=== PATIENT | male | born 1940 | race Caucasian/White ===

== ENCOUNTER 2018-02-14 11:47 | Emergency (ER) | payer MEDICARE, MEDICAID ==
[~2018-02-14] VITALS: Ht 180.3 cm; Wt 77.3 kg
[~2018-02-14 11:47] MED LIST: ACCUPRIL10 MG PO; BAYER CHEWABLE81 MG PO; GLUCOPHAGE500 MG PO; LIPITOR10 MG PO; LOVAZA1 G PO; NIACIN100 MG; NIASPAN500 MG PO; OMEGA-3100 MG PO; PLAVIX75 MG PO; VITAMIN E200 UNI2 PO
[2018-02-14 11:49] VITALS: Ht 180.3 cm; Wt 77.3 kg
[2018-02-14 12:08] LABS: BASOPHILS 0.2 % (0-2); EOSINOPHILS 3.7 % (0-7); HEMATOCRIT 38.1 % (42.0-54.0); HEMOGLOBIN 13.3 g/dL (13.5-17.5); IMMATURE GRANULOCYTES 0.2 % (0-5); LYMPHOCYTES 31.2 % (15-50); MCH 30.2 pg (26.0-34.0); MCHC 34.9 g/dL (31.0-37.0); MCV 86.4 fL (80.0-100.0); MONOCYTES 11.8 % (2-11); NEUTROPHILS 52.9 % (40-80); PLATELET COUNT 217 10x3/uL (130-400); RBC 4.41 10x6/uL (4.20-6.10); RDW 13.3 % (11.5-14.5); WBC 5.9 10x3/uL (4.8-10.8)
[2018-02-14 12:23] LABS: ALBUMIN 3.2 g/dL (3.4-5.0); ANION GAP 14.9 mmol/L (8-16); BILIRUBIN - TOTAL 0.6 mg/dL (0.2-1.3); CALCIUM 8.7 mg/dL (8.5-10.1); CARBON DIOXIDE 23.5 mmol/L (21.0-32.0); CREATININE - SERUM 1.2 mg/dL (0.6-1.3); POTASSIUM - SERUM 4.4 mmol/L (3.5-5.1); PROTEIN - SERUM 7.2 g/dL (6.4-8.2)
[2018-02-14 12:38] LABS: APPEARANCE HAZY (CLEAR); BILIRUBIN NEGATIVE (NEGATIVE); COLOR YELLOW (YELLOW); GLUCOSE 500 mg/dL (NEGATIVE); KETONE NEGATIVE (NEGATIVE); NITRITE NEGATIVE (NEGATIVE); PROTEIN NEGATIVE (NEGATIVE); SPECIFIC GRAVITY 1.025 (1.005-1.020); UROBILINOGEN NORMAL (NORMAL)
[2018-02-14 16:28] VITALS: BP 147/60
== END 2018-02-14 16:29 | disposition home or self-care (01) ==
LOC: D.ER 11:47
PROVIDERS: Emergency Medicine
DX: R10.84 Generalized abdominal pain (principal); E11.9 Type 2 diabetes mellitus without complications; I10 Essential (primary) hypertension

== ENCOUNTER 2018-09-02 14:28 | Inpatient (IN) | payer MEDICARE, MEDICAID ==
[~2018-09-02] VITALS: Ht 180.3 cm; Wt 79.4 kg
[2018-09-02 14:55] LABS: APPEARANCE CLEAR (CLEAR); BILIRUBIN NEGATIVE (NEGATIVE); COLOR YELLOW (YELLOW); GLUCOSE 250 mg/dL (NEGATIVE); KETONE SMALL mg/dL (NEGATIVE); NITRITE NEGATIVE (NEGATIVE); PROTEIN NEGATIVE (NEGATIVE); SPECIFIC GRAVITY 1.025 (1.005-1.020); UROBILINOGEN NORMAL (NORMAL)
[2018-09-02 15:04] LABS: BASOPHILS 0.1 % (0-2); EOSINOPHILS 0.5 % (0-7); HEMATOCRIT 43.4 % (42.0-54.0); HEMOGLOBIN 15.5 g/dL (13.5-17.5); IMMATURE GRANULOCYTES 0.1 % (0-5); LYMPHOCYTES 17.5 % (15-50); MCH 30.7 pg (26.0-34.0); MCHC 35.7 g/dL (31.0-37.0); MCV 85.9 fL (80.0-100.0); MEAN PLATELET VOLUME 11.2 fL (7.4-10.4); MONOCYTES 7.8 % (2-11); PLATELET COUNT 217 10x3/uL (130-400); RBC 5.05 10x6/uL (4.20-6.10); RDW 12.9 % (11.5-14.5); WBC 8.3 10x3/uL (4.8-10.8)
[2018-09-02 15:08] LABS: ANION GAP 14.3 mmol/L (8-16); BILIRUBIN - TOTAL 0.91 mg/dL (0.2-1.3); CALCIUM 9.2 mg/dL (8.5-10.1); CARBON DIOXIDE 28.6 mmol/L (21.0-32.0); CREATININE - SERUM 1.3 mg/dL (0.6-1.3); POTASSIUM - SERUM 3.9 mmol/L (3.5-5.1); PROTEIN - SERUM 8.6 g/dL (6.4-8.2)
[2018-09-02 15:17] LABS: TROPONIN-I 0.029 ng/mL (0.000-0.060)
[2018-09-02 16:21] LABS: AMYLASE - SERUM 895 U/L (25-115); LIPASE 113 U/L (73-393)
[2018-09-02 18:03] LABS: UDS - AMPHET NEGATIVE QUAL (NEGATIVE); UDS - BARB NEGATIVE QUAL (NEGATIVE); UDS - BENZO NEGATIVE QUAL (NEGATIVE); UDS - COCAINE NEGATIVE QUAL (NEGATIVE); UDS - OPIATE NEGATIVE QUAL (NEGATIVE); UDS - PCP NEGATIVE QUAL (NEGATIVE); UDS - THC NEGATIVE QUAL (NEGATIVE)
--- NOTE | 2018-09-02 19:46 | NUR ---
PT ARRIVED ON UNIT VIA WHEELCHAIR ESCORTED BY ER STAFF. POSITIONED IN BED FOR COMFORT.
--- NOTE | 2018-09-02 19:51 | MORECARE ---
CASE MANAGEMENT DISCHARGE SUMMARY PATIENT: SHAYY FALCON UNIT: [id number] ADM DATE: 09/02/18 AGE: 77 : 42 SEX: M ROOM/BED: D.2205 AUTHOR: RENU,DOC PHYSICIAN: REFERRING PHYSICIAN: DIRK MAYFIELD MD DATE OF SERVICE: 09/02/18 Discharge Plan Patient Name: SHAYY FALCON Facility: [facility]:[place] : 1940 Planned Disposition: Home Anticipated Discharge Date: 09/04/18 Discharge Date: Expected LOS: 2 Initial Reviewer: [email or web address] Initial Review Date: 09/02/2018 Generated: 09/02/18 8:51 pm DCP- Discharge Planning Updated by [email or web address]: Destiny Griffiths on 09/02/18 6:[address] Patient Name: SHAYY FALCON Admission Status: ER Accout number: [id number] Admission Date: 09-02-2018 : 1940 Admission Diagnosis: Attending: DIRK MAYFIELD Current LOS: 1 Anticipated DC Date: 09-04-2018 Planned Disposition: Home Primary Insurance: [employer] ADV Discharge Planning Comments: CM met with patient to complete initial dc planning assessment. CM educated patient on the CM role and verbal consent given by patient to complete assessment. Patient lives at home with his step sister. At discharge patient plans to return home and feels this is a safe discharge. CM discussed availability of home health, rehab services, and medical equipment. He has caregivers 3 x w 2 hours a visit that does his house cleaning and laundry. Patient denied further known discharge needs at this time. CM will continue to follow and will assist as needed with dc plans/needs. Physical Science Technician: Destiny Griffiths RN, [facility] DCPIA - Discharge Planning Initial Assessment Updated by [email or web address]: Destiny Griffiths on 09/02/18 7:49 pm * Is the patient Alert and Oriented? Yes * PCP Dr. Cota * Pharmacy [facility] [address] * Preadmission Environment Home with Family * ADLs Independent * Equipment Cane Rolling Walker * List name and contact numbers for known caregivers / representatives who currently or will assist patient after discharge: Ciara Johnson - - [phone] Francois davis - [phone] * Verbal permission to speak to the caregivers and representatives has been obtained from the patient. Yes * Community resources currently utilized Other * Please name any agencies selected above. [facility] * Additional services required to return to the preadmission environment? No * Can the patient safely return to the preadmission environment? Yes * Has this patient been hospitalized within the prior 30 days at any hospital? No Patient Name: SHAYY FALCON Page [id number] at 1950 All edits/amendments must be made on the electronic document DICTATION DATE: 09/02/181950 CONSULTING NETWORKING ENGINEER: NOAH 09/02/181950 RPT#: [id number] DC DATE: STATUS: ADM IN [facility] [address] [place] [address] END OF REPORT
--- NOTE | 2018-09-02 20:30 | NUR ---
STARTED IV FLUIDS PER ORDER AT 200 ML/HR. PT CHANGED INTO A GOWN AND POSITIONED FOR COMFORT.
[2018-09-02 22:43] VITALS: BP 156/81; BMI 24.4
--- NOTE | 2018-09-02 23:03 | NUR ---
ADMISSION ASSESSMENT AND HISTORY COMPLETE.
[2018-09-03 05:18] LABS: BASOPHILS 0.2 % (0-2); EOSINOPHILS 1.5 % (0-7); HEMATOCRIT 35.2 % (42.0-54.0); IMMATURE GRANULOCYTES 0.2 % (0-5); LYMPHOCYTES 32.6 % (15-50); MCH 29.9 pg (26.0-34.0); MCHC 34.9 g/dL (31.0-37.0); MCV 85.6 fL (80.0-100.0); MEAN PLATELET VOLUME 10.5 fL (7.4-10.4); MONOCYTES 12.1 % (2-11); NEUTROPHILS 53.4 % (40-80); PLATELET COUNT 178 10x3/uL (130-400); RBC 4.11 10x6/uL (4.20-6.10); RDW 12.7 % (11.5-14.5)
[2018-09-03 05:21] LABS: HEMOGLOBIN 12.3 g/dL (13.5-17.5); WBC 6.1 10x3/uL (4.8-10.8)
[2018-09-03 05:48] LABS: ALKALINE PHOSPHATASE 70 U/L (46-116); BILIRUBIN - TOTAL 0.71 mg/dL (0.2-1.3); CALCIUM 7.7 mg/dL (8.5-10.1); CARBON DIOXIDE 24.3 mmol/L (21.0-32.0); CHLORIDE - SERUM 107 mmol/L (98-107); LIPASE 770 U/L (73-393); POTASSIUM - SERUM 3.4 mmol/L (3.5-5.1); SODIUM 141 mmol/L (136-145); UREA NITROGEN 13 mg/dL (7-18); eGFR NON AFRICAN AMERICAN 77 mL/min (90-120)
[2018-09-03 05:49] VITALS: BP 114/53
[2018-09-03 05:51] LABS: ALBUMIN 2.8 g/dL (3.4-5.0); ALT (SGPT) 20 U/L (10-68); AMYLASE - SERUM 689 U/L (25-115); CALC OSMOLALITY 280 mosm/kg (275-300); GLUCOSE 106 mg/dL (74-106); PROTEIN - SERUM 6.1 g/dL (6.4-8.2)
--- NOTE | 2018-09-03 07:50 | NUR ---
PT RESTING IN BED. NO ACUTE DISTRESS. DENIES PAIN AT THIS TIME. IV TO LEFT HAND WITH NS @ 200 ML/HR INFUSING VIA PUMP. SITE WITHOUT REDNESS OR EDEMA. REPORTS TENDERNESS TO ABDOMEN WITH MOVEMENT. DENIES FURTHER NEEDS AT THIS TIME. CL WITHIN REACH. ENCOURAGED TO CALL WITH NEEDS. CONTINUE POC
[2018-09-03 08:31] VITALS: BP 144/83
[2018-09-03 13:22] VITALS: Ht 180.3 cm; Wt 79.4 kg
[2018-09-03 13:25] VITALS: BP 125/58
[2018-09-03 17:06] VITALS: BP 127/58
--- NOTE | 2018-09-03 19:29 | NUR ---
PATIENT RESTING IN BED WITH EYES CLOSED AND NO S/S OF DISTRESS. BED IN LOWEST POSITION AND CALL LIGHT WITHIN REACH. WILL CONTINUE TO MONITOR.
[2018-09-03 20:00] VITALS: BP 170/86
[2018-09-04] VITALS: BP 124/58
[2018-09-04 04:00] VITALS: BP 141/57
[2018-09-04 05:25] LABS: BASOPHILS 0.2 % (0-2); EOSINOPHILS 2.2 % (0-7); HEMATOCRIT 33.8 % (42.0-54.0); HEMOGLOBIN 11.8 g/dL (13.5-17.5); IMMATURE GRANULOCYTES 0.2 % (0-5); LYMPHOCYTES 28.1 % (15-50); MCH 30.1 pg (26.0-34.0); MCHC 34.9 g/dL (31.0-37.0); MCV 86.2 fL (80.0-100.0); MEAN PLATELET VOLUME 11.1 fL (7.4-10.4); MONOCYTES 12.4 % (2-11); NEUTROPHILS 56.9 % (40-80); PLATELET COUNT 166 10x3/uL (130-400); RBC 3.92 10x6/uL (4.20-6.10); RDW 12.8 % (11.5-14.5); WBC 5.6 10x3/uL (4.8-10.8)
--- NOTE | 2018-09-04 05:40 | NUR ---
PAGESaad TRUONG JACK MACHINE OPERATOR FOR DR. FORD IN REGARDS TO PATIENT GLUCOSE RESULTS OF 61 AND NO HYPOGLYCEMIC PROTOCOL.
[2018-09-04 06:13] LABS: ALBUMIN 2.8 g/dL (3.4-5.0); ALKALINE PHOSPHATASE 67 U/L (46-116); BILIRUBIN - TOTAL 0.73 mg/dL (0.2-1.3); CALCIUM 7.8 mg/dL (8.5-10.1); CARBON DIOXIDE 21.8 mmol/L (21.0-32.0); CHLORIDE - SERUM 108 mmol/L (98-107); POTASSIUM - SERUM 3.6 mmol/L (3.5-5.1); PROTEIN - SERUM 5.7 g/dL (6.4-8.2); SODIUM 140 mmol/L (136-145); UREA NITROGEN 12 mg/dL (7-18); eGFR NON AFRICAN AMERICAN 77 mL/min (90-120)
[2018-09-04 06:29] LABS: ALT (SGPT) 26 U/L (10-68); CALC OSMOLALITY 276 mosm/kg (275-300); GLUCOSE 59 mg/dL (74-106)
--- NOTE | 2018-09-04 08:17 | NUR ---
AWAKE AND ALERT. ORIENTED X3. NO C/O AT THIS TIME. LUNGS ARE CLEAR BIALTERALLY, NO COUGH NOTED. SKIN IS INTACT WITHOUT REDNESS. IV TO LEFT HAND IS PATENT WITHOUT REDNESS AT INSERTION SITE. DENIES NEEDS. REFUSED OFFER OF ICE CHIPS.
--- NOTE | 2018-09-04 10:00 | NUR ---
RESTING QUIETLY IN BED. C/O INCREASED AMOUNT OF URINATIONS. EXPLAINED IV FLUID RATE IS THE PROBABLE CAUSE OF SAME.
[2018-09-04 12:10] LABS: LIPASE 123 U/L (73-393)
[2018-09-04 12:11] LABS: AMYLASE - SERUM 565 U/L (25-115)
--- NOTE | 2018-09-04 12:30 | NUR ---
LUNCH TRAY SERVED IN ROOM. PATIENT ATE OVER HALF OF REGULAR TRAY. NO C/O NAUSEA OR PAIN AFTER EATING. WILL CONTINUE TO MONITOR.
[2018-09-04 13:45] VITALS: BP 117/52
--- NOTE | 2018-09-04 15:30 | NUR ---
HAD LARGE AMOUNT OF DIARRHEA. ASSISTED TO SHOWER PER STAFF. LINENS CHANGED. IV TO LEFT FOREARM CAME OUT WITH CATHETER INTACT. RESITED TO LEFT FOREARM AFTER ONE ATTEMPT WITH 20G. TOLERATED WELL.
[2018-09-04 16:55] VITALS: BP 131/60
--- NOTE | 2018-09-04 19:32 | NUR ---
ATE ABOUT 3/4 OF SUPPER. DENIES NEEDS. NO CHANGES NOTED. NO C/O NAUSEA OR PAIN AFTER EATING.
[2018-09-04 20:00] VITALS: BP 156/57
[2018-09-05] VITALS: BP 134/52
--- NOTE | 2018-09-05 03:34 | NUR ---
REC'D. AT [facility]. OF SHIFT IN BATHROOM STATES IF THEY ARE NOT GOING TO DO ANYTHING BUT RUN FLUID IN ME I MAY WELL GO HOME.DENIES PAIN AT PRESENT TIME.WILL CONTINUE TO MONITOR FOR ANY FURTHER CHGES AND FOLLOW CURRENT PLAN OF CARE.
[2018-09-05 04:00] VITALS: BP 160/86
[2018-09-05 06:09] LABS: BASOPHILS 0 % (0-2); EOSINOPHILS 2.2 % (0-7); HEMATOCRIT 32.7 % (42.0-54.0); HEMOGLOBIN 11.6 g/dL (13.5-17.5); IMMATURE GRANULOCYTES 0.2 % (0-5); LYMPHOCYTES 30.3 % (15-50); MCH 30.1 pg (26.0-34.0); MCHC 35.5 g/dL (31.0-37.0); MCV 84.7 fL (80.0-100.0); MEAN PLATELET VOLUME 11.3 fL (7.4-10.4); MONOCYTES 13.1 % (2-11); NEUTROPHILS 54.2 % (40-80); PLATELET COUNT 170 10x3/uL (130-400); RBC 3.86 10x6/uL (4.20-6.10); RDW 12.8 % (11.5-14.5); WBC 5.4 10x3/uL (4.8-10.8)
[2018-09-05 06:18] LABS: ALBUMIN 2.6 g/dL (3.4-5.0); ALKALINE PHOSPHATASE 61 U/L (46-116); ALT (SGPT) 20 U/L (10-68); BILIRUBIN - TOTAL 0.51 mg/dL (0.2-1.3); CALCIUM 7.4 mg/dL (8.5-10.1); CARBON DIOXIDE 25.3 mmol/L (21.0-32.0); CHLORIDE - SERUM 108 mmol/L (98-107); LIPASE 135 U/L (73-393); PROTEIN - SERUM 5.5 g/dL (6.4-8.2); SODIUM 142 mmol/L (136-145); UREA NITROGEN 10 mg/dL (7-18); eGFR NON AFRICAN AMERICAN 77 mL/min (90-120)
[2018-09-05 06:38] LABS: CALC OSMOLALITY 279 mosm/kg (275-300)
[2018-09-05 06:40] LABS: AMYLASE - SERUM 577 U/L (25-115); GLUCOSE 60 mg/dL (74-106); POTASSIUM - SERUM 2.9 mmol/L (3.5-5.1)
--- NOTE | 2018-09-05 06:47 | NUR ---
I have reviewed this patient and I concur with the Shift Assessment completed by the Licensed Practical Nurse today this shift.
--- NOTE | 2018-09-05 07:54 | NUR ---
AWAKE AND ALERT. ORIENTED X3. C/O SLIGHT BELLY PAIN THIS AM BUT NO NAUSEA. WILL MONITOR. LUNGS ARE CLEAR BILATERALLY, NO COUGH NOTED. SKIN IS INTACT WITHOUT REDNESS. IV TO LEFT FOREARM IS PATENT WITHOUT REDNESS AT INSERTION SITE. DENIES NEEDS.
--- NOTE | 2018-09-05 08:30 | NUR ---
IV TO LEFT FOREARM REDDENED AND WARM. IV D/C WITH CATHETER INTACT. PATIENT REFUSED TO RESITE IV. "I'M GOING HOME IN A WHILE". WILL GIVE PO POTASSIUM TO COMPLETE DOSE.
[2018-09-05 09:00] VITALS: BP 103/70
--- NOTE | 2018-09-05 12:00 | NUR ---
FSBS 163. GIVEN 2 UNITS HUMALOG SUBQ PER SS. DENIES NEEDS.
--- NOTE | 2018-09-05 12:21 | MORECARE ---
CASE MANAGEMENT DISCHARGE SUMMARY PATIENT: SHAYY FALCON UNIT: [id number] ADM DATE: 09/02/18 AGE: 77 : 42 SEX: M ROOM/BED: D.2205 AUTHOR: ABDIAS SEARS PHYSICIAN: REFERRING PHYSICIAN: DIRK MAYFIELD MD DATE OF SERVICE: 09/05/18 Discharge Plan Patient Name: SHAYY FALCON Facility: [facility]:[place] : 1940 Planned Disposition: Home Anticipated Discharge Date: 09/04/18 Discharge Date: Expected LOS: 2 Initial Reviewer: [email or web address] Initial Review Date: 09/02/2018 Generated: 09/05/18 1:21 pm Comments DCP- Discharge Planning Updated by [email or web address]: Alexia Mcmullen on 09/05/18 11:[address] Patient will be discharging home today, denies any needs. IMM served and explained. CM to follow as needed DCP- Discharge Planning Updated by [email or web address]: Destiny Griffiths on 09/02/18 6:[address] Patient Name: SHAYY FALCON Admission Status: ER Accout number: [id number] Admission Date: 09-02-2018 : 1940 Admission Diagnosis: Attending: DIRK MAYFIELD Current LOS: 1 Anticipated DC Date: 09-04-2018 Planned Disposition: Home Primary Insurance[facility] Discharge Planning Comments: CM met with patient to complete initial dc planning assessment. CM educated patient on the CM role and verbal consent given by patient to complete assessment. Patient lives at home with his step sister. At discharge patient plans to return home and feels this is a safe discharge. CM discussed availability of home health, rehab services, and medical equipment. He has caregivers 3 x w 2 hours a visit that does his house cleaning and laundry. Patient denied further known discharge needs at this time. CM will continue to follow and will assist as needed with dc plans/needs. Chemist Internship: Destiny Griffiths RN, [facility] DCPIA - Discharge Planning Initial Assessment Updated by [email or web address]: Destiny Griffiths on 09/02/18 7:49 pm * Is the patient Alert and Oriented? Yes * PCP Dr. Cota * Pharmacy [facility] [address] by [address] * Preadmission Environment Home with Family * ADLs Independent * Equipment Cane Rolling Walker * List name and contact numbers for known caregivers / representatives who currently or will assist patient after discharge: Ciara Johnson - sister - [phone] Francois Johnson - brother - [phone] * Verbal permission to speak to the caregivers and representatives has been obtained from the patient. Yes * Community resources currently utilized Other * Please name any agencies selected above. [facility] * Additional services required to return to the preadmission environment? No * Can the patient safely return to the preadmission environment? Yes * Has this patient been hospitalized within the prior 30 days at any hospital? No Coverage Notice Reviewer: [id number] Christelle Mcmullen Notice Issued Date-Time: 09/05/2018 12:13 Notice Type: IM Discharge Notice Notice Delivered To: Patient Relationship to Patient: Military Police Officer Name: Delivery Method: HAND - Hand Delivered Ayaka Days: Prior Verbal Notification: Recipient Understood Notice: Yes Recipient Signature: Yes Med Rec Note Co-signed by Attending: Coverage Notice Comment: Last DP export: 09/02/18 6:51 p Patient Name: SHAYY FALCON Page 22953 at 1221 All edits/amendments must be made on the electronic document DICTATION DATE: 09/05/181219 DIRECTOR PLANS: NOAH 09/05/181219 RPT#: [id number] DC DATE: STATUS: ADM IN [facility] [address] [place] [address] END OF REPORT
[2018-09-05 13:14] VITALS: BP 145/80
--- NOTE | 2018-09-05 14:02 | NUR ---
NUTRITION F/U PT TOLERATING REG DIET AT BREAKFAST. NOTE POSSIBLE DC. WILL CONTINUE TO PROVIDE DIET, MONITOR PT PROGRESS. RD FOLLOWING
--- NOTE | 2018-09-05 14:48 | NUR ---
POTASSIUM UP TO 3.4. DISCHARGED TO HOME AT THIS TIME AMBULATORY. DISCHARGE INSTRUCTIONS GIVEN BOTH VERB ALLY AND WRITTEN. ALL QUESTIONS ANSWERED. NO NEW PRESCRIPTIONS NEEDED. PATIENT VERBALIZED UNDERSTANDING OF SAME. WAITING ON RIDE AT THIS TIME.
--- NOTE | 2018-09-05 15:20 | NUR ---
DISCHARGED TO HOME AMBULATORY. ALL BELONGINGS WITH PATIENT.
--- NOTE | 2018-09-06 16:59 | MORECARE ---
CASE MANAGEMENT DISCHARGE SUMMARY PATIENT: SHAYY FALCON UNIT: [id number] ADM DATE: 09/02/18 AGE: 77 : 42 SEX: M ROOM/BED: D.2205 AUTHOR: ABDIAS SEARS PHYSICIAN: REFERRING PHYSICIAN: DIRK MAYFIELD MD DATE OF SERVICE: 09/06/18 Discharge Plan Patient Name: SHAYY FALCON Facility: [facility]:[place] : 1940 Planned Disposition: Home Anticipated Discharge Date: 09/04/18 Discharge Date: 09/05/2018 Expected LOS: 2 Initial Reviewer: [email or web address] Initial Review Date: 09/02/2018 Generated: 09/06/18 5:59 pm Comments DCP- Discharge Planning Updated by [email or web address]: Alexia Mcmullen on 09/05/18 11:[address] Patient will be discharging home today, denies any needs. IMM served and explained. CM to follow as needed DCP- Discharge Planning Updated by [email or web address]: Destiny Griffiths on 09/02/18 6:[address] Patient Name: SHAYY FALCON Admission Status: ER Accout number: [id number] Admission Date: 09-02-2018 : 1940 Admission Diagnosis: Attending: DIRK MAYFIELD Current LOS: 1 Anticipated DC Date: 09-04-2018 Planned Disposition: Home Primary Insurance: [facility] MEDICARE ADV Discharge Planning Comments: CM met with patient to complete initial dc planning assessment. CM educated patient on the CM role and verbal consent given by patient to complete assessment. Patient lives at home with his step sister. At discharge patient plans to return home and feels this is a safe discharge. CM discussed availability of home health, rehab services, and medical equipment. He has caregivers 3 x w 2 hours a visit that does his house cleaning and laundry. Patient denied further known discharge needs at this time. CM will continue to follow and will assist as needed with dc plans/needs. Transfer Engineer: Destiny Griffiths RN, [facility] DCPIA - Discharge Planning Initial Assessment Updated by [email or web address]: Destiny Griffiths on 09/02/18 7:49 pm * Is the patient Alert and Oriented? Yes * PCP Dr. Cota * Pharmacy [facility] [address] by [address] * Preadmission Environment Home with Family * ADLs Independent * Equipment Cane Rolling Walker * List name and contact numbers for known caregivers / representatives who currently or will assist patient after discharge: Ciara Johnson - sister - [phone] Francois Johnson - brother - [phone] * Verbal permission to speak to the caregivers and representatives has been obtained from the patient. Yes * Community resources currently utilized Other * Please name any agencies selected above. [facility] * Additional services required to return to the preadmission environment? No * Can the patient safely return to the preadmission environment? Yes * Has this patient been hospitalized within the prior 30 days at any hospital? No Coverage Notice Reviewer: [id number] Christelle Mcmullen Notice Issued Date-Time: 09/05/2018 12:13 Notice Type: IM Discharge Notice Notice Delivered To: Patient Relationship to Patient: Tie Worker Name: Delivery Method: HAND - Hand Delivered Ayaka Days: Prior Verbal Notification: Recipient Understood Notice: Yes Recipient Signature: Yes Med Rec Note Co-signed by Attending: Coverage Notice Comment: Last DP export: 09/05/18 11:21 am Patient Name: SHAYY FALCON Page 88959 at 1659 All edits/amendments must be made on the electronic document DICTATION DATE: 09/06/181658 ASSISTANT EDITOR: NOAH 09/06/181658 RPT#: [id number] DC DATE:09/05/18 STATUS: DIS IN [facility] [address] [place] [address] END OF REPORT
== END 2018-09-05 15:20 | disposition home or self-care (01) | DRG 440 ==
LOC: D.ER 14:28 → D.MS 18:44
PROVIDERS: Family Medicine; ADMIT Internal Medicine Nephrology; ATTEND Internal Medicine Nephrology
DX: K85.90 Acute pancreatitis without necrosis or infection, unspecified (principal); R11.2 Nausea with vomiting, unspecified; E86.0 Dehydration; E11.65 Type 2 diabetes mellitus with hyperglycemia; I10 Essential (primary) hypertension; I20.9 Angina pectoris, unspecified

== ENCOUNTER → 2018-09-20 11:28 | Outpatient (CLI) | payer MEDICARE, MEDICAID ==
[2018-09-03 13:22] VITALS: BMI 24.4
[2018-09-20 12:45] LABS: LIPASE 139 U/L (73-393)
[2018-09-20 13:01] LABS: AMYLASE - SERUM 835 U/L (25-115)
[2018-09-22 12:09] LABS: IGG SUBCLASS 1 538 mg/dL (248-810); IGG SUBCLASS 2 325 mg/dL (130-555); IGG SUBCLASS 3 35 mg/dL (15-102); IGG SUBCLASS 4 188 mg/dL (2-96)
== END | disposition home or self-care (01) ==
LOC: D.LAB 11:28
PROVIDERS: ATTEND Internal Medicine Gastroenterology
DX: R74.8 Abnormal levels of other serum enzymes (principal); R10.9 Unspecified abdominal pain; K59.09 Other constipation

== ENCOUNTER 2018-09-28 12:30 | Inpatient (IN) | payer MEDICARE, MEDICAID ==
[~2018-09-28] VITALS: Ht 180.3 cm; Wt 76.8 kg
[2018-09-28 13:29] LABS: BASOPHILS 0 % (0-2); EOSINOPHILS 0.2 % (0-7); HEMATOCRIT 43.6 % (42.0-54.0); HEMOGLOBIN 15.7 g/dL (13.5-17.5); IMMATURE GRANULOCYTES 0.2 % (0-5); LYMPHOCYTES 12.9 % (15-50); MCH 30.7 pg (26.0-34.0); MCV 85.3 fL (80.0-100.0); MEAN PLATELET VOLUME 12.1 fL (7.4-10.4); MONOCYTES 11.8 % (2-11); NEUTROPHILS 74.9 % (40-80); RBC 5.11 10x6/uL (4.20-6.10); RDW 12.4 % (11.5-14.5); WBC 11.1 10x3/uL (4.8-10.8)
[2018-09-28 13:34] LABS: PLATELET COUNT 271 10x3/uL (130-400)
[2018-09-28 14:00] VITALS: BP 186/99
[2018-09-28 14:24] LABS: APPEARANCE CLEAR (CLEAR); COLOR YELLOW (YELLOW); SPECIFIC GRAVITY 1.025 (1.005-1.020)
[2018-09-28 14:25] LABS: ALBUMIN 3.4 g/dL (3.4-5.0); ANION GAP 13.6 mmol/L (8-16); BILIRUBIN - TOTAL 1.18 mg/dL (0.2-1.3); CALCIUM 8.8 mg/dL (8.5-10.1); CARBON DIOXIDE 27.4 mmol/L (21.0-32.0); CREATININE - SERUM 1.3 mg/dL (0.6-1.3); PROTEIN - SERUM 7.3 g/dL (6.4-8.2)
[2018-09-28 14:25] LABS: BACTERIA FEW /hpf (NONE SEEN); BILIRUBIN NEGATIVE (NEGATIVE); EPITHELIAL CELLS 0-5 /hpf (0-5); GLUCOSE 1000 mg/dL (NEGATIVE); KETONE NEGATIVE (NEGATIVE); NITRITE NEGATIVE (NEGATIVE); PROTEIN 1+ mg/dL (NEGATIVE); RED CELLS - URINE NONE SEEN /hpf (0-5); UROBILINOGEN NORMAL (NORMAL); WHITE CELLS - URINE NSEEN /hpf (0-5)
[2018-09-28 14:27] LABS: TROPONIN-I 0.042 ng/mL (0.000-0.060)
[2018-09-28 15:00] VITALS: BP 189/96
[2018-09-28 16:00] VITALS: BP 165/97
--- NOTE | 2018-09-28 16:54 | MORECARE ---
CASE MANAGEMENT DISCHARGE SUMMARY PATIENT: SHAYY FALCON UNIT: [id number] ADM DATE: 09/28/18 AGE: 77 : 42 SEX: M ROOM/BED: D.1205 AUTHOR: ABDIAS SEARS PHYSICIAN: REFERRING PHYSICIAN: DIRK MAYFIELD MD DATE OF SERVICE: 09/28/18 Discharge Plan Patient Name: SHAYY FALCON Facility: [facility]:[place] : 1940 Planned Disposition: Home Anticipated Discharge Date: 09/30/18 Discharge Date: Expected LOS: 2 Initial Reviewer: [email or web address] Initial Review Date: 09/28/2018 Generated: 09/28/18 5:54 pm DCPIA - Discharge Planning Initial Assessment Updated by [email or web address]: Destiny Griffiths on 09/28/18 4:54 pm * Is the patient Alert and Oriented? Yes * How many steps to enter\exit or inside your home? one * PCP Dr. Cota * Pharmacy [facility] by [address] * Preadmission Environment Home with Family * ADLs Partial Dependent * Partial ADLs (Assistance needed) Medication Management * Equipment Cane Rolling Walker Wheelchair * Other Equipment blood pressure cuff * List name and contact numbers for known caregivers / representatives who currently or will assist patient after discharge: Ciara Johnson - poa- [phone] Francois Bourgeois nephserafin - [phone] Bill -friend (transportation at [place]) [phone] * Verbal permission to speak to the caregivers and representatives has been obtained from the patient. Yes * Community resources currently utilized Meals on Wheels Private Duty Care * Please name any agencies selected above. [facility] * Additional services required to return to the preadmission environment? No * Can the patient safely return to the preadmission environment? Yes * Has this patient been hospitalized within the prior 30 days at any hospital? Yes Patient Name: SHAYY FALCON Page 72926 at 4521 All edits/amendments must be made on the electronic document DICTATION DATE: 09/28/181652 AIR TRAFFIC CONTROL SUPERVISOR: NOAH 09/28/181652 RPT#: [id number] DC DATE: STATUS: ADM IN [facility] [address] [place] [address] END OF REPORT
[2018-09-28 17:00] VITALS: BP 166/77
--- NOTE | 2018-09-28 19:47 | NUR ---
LEVAQUIN INFUSION COMPLETE AT THIS TIME.
[2018-09-28] MEDS ORDERED: CATAPRES0.1 MG PO (19:57)
[2018-09-28] MEDS ORDERED: PREDNISONE10 MG PO (19:58)
[2018-09-28] MEDS ORDERED: MIRALAX17 GM PO (20:00)
[2018-09-28] MEDS ORDERED: ULTRAM50 MG PO (20:00)
[2018-09-28 20:04] VITALS: BP 159/88
[2018-09-28 22:54] VITALS: BP 159/88; BMI 23.6
[2018-09-29 00:58] VITALS: BP 180/103
[2018-09-29 04:43] VITALS: BP 186/109
[2018-09-29 05:29] LABS: BASOPHILS 0 % (0-2); EOSINOPHILS 0.2 % (0-7); IMMATURE GRANULOCYTES 0.2 % (0-5); MCH 30.1 pg (26.0-34.0); MCHC 35.9 g/dL (31.0-37.0); MCV 83.9 fL (80.0-100.0); MEAN PLATELET VOLUME 11.3 fL (7.4-10.4); MONOCYTES 14.2 % (2-11); NEUTROPHILS 67.4 % (40-80); PLATELET COUNT 233 10x3/uL (130-400); RBC 4.65 10x6/uL (4.20-6.10); RDW 12.4 % (11.5-14.5); WBC 9.9 10x3/uL (4.8-10.8)
[2018-09-29 06:01] LABS: ALBUMIN 2.9 g/dL (3.4-5.0); ANION GAP 14.6 mmol/L (8-16); BILIRUBIN - TOTAL 0.89 mg/dL (0.2-1.3); CALCIUM 8.3 mg/dL (8.5-10.1); CARBON DIOXIDE 24.1 mmol/L (21.0-32.0); CREATININE - SERUM 1.1 mg/dL (0.6-1.3); MAGNESIUM - SERUM 2.2 mg/dL (1.8-2.4); POTASSIUM - SERUM 3.7 mmol/L (3.5-5.1); PROTEIN - SERUM 6.5 g/dL (6.4-8.2)
[2018-09-29] MEDS ORDERED: CREON (PANCRELI1 CAP PO (06:32)
--- NOTE | 2018-09-29 07:54 | NUR ---
IVBP FLAGYL HUNG AT THIS TIME. PT A/O X4, RESP EVEN AND NONLABORED ON RA. MONITOR SHOWING SR 75. PT DENIES ANY NEEDS AT THSI TIME. CALL LIGHT IN REACH, NAD NOTED, WILL CONTINUE PLAN OF CARE.
[2018-09-29 08:14] VITALS: BP 161/84
[2018-09-29 09:32] LABS: APTT 34.9 SECONDS (22.8-39.4); INR 1.23 (0.85-1.17)
--- NOTE | 2018-09-29 10:04 | NUR ---
AM MEDS GIVEN AT THIS TIME. ALSO GAVE 4MG OF MORPHINE FOR PAIN LEVEL OF 5/10. PT IN BED, DENIES ANY NEEDS AT THIS TIME. CALL LIGHT IN REACH, NAD NOTED, WILL CONTINUE TO MONITOR.
--- NOTE | 2018-09-29 11:49 | NUR ---
BLOOD SUGAR OF 163, 4UNITS OF HUMULIN GIVEN PER S/S. PT DENIES ANY NEEDS AT THIS TIME. CALL LIGHT IN REACH, NAD NOTED, WILL CONTINUE TO MONITOR.
[2018-09-29 13:17] VITALS: BP 136/81
[2018-09-29 13:43] VITALS: Ht 180.3 cm; Wt 76.8 kg
--- NOTE | 2018-09-29 14:54 | NUR ---
URINE SAMPLE COLLECTED AND TAKEN TO LAB.
--- NOTE | 2018-09-29 16:00 | NUR ---
PT'S SISTER (SUZANNA) CALLED AND ADDED FLOMAX TO PT'S ALLERGY LIST. ALLERGY NOTED.
[2018-09-29 16:09] VITALS: BP 114/60
--- NOTE | 2018-09-29 16:54 | NUR ---
BLOOD SUGAR OF 77, NO COVERAGE PER S/S. ALSO HELD METFORMIN AT THIS TIME. ENCOURAGE PT TO EAT HIS DINNER. IVPB LEVAQUIN HUNG AT THIS TIME. PT DENIES ANY NEEDS AT THIS TIME. CALL LIGHT IN REACH, NAD NOTED.
--- NOTE | 2018-09-29 17:25 | NUR ---
CALLED ORA AND INFORMED HER THAT I NEED CLINIMIX AND ZOFRAN DRIP FOR PT.
--- NOTE | 2018-09-29 18:32 | NUR ---
NOTIFIED BY HOUSESUPERVISOR THAT CLINIMEX WILL NOT BE AVAILABLE UNTIL TOMORROW, BECAUSE PHARMACY HAS TO MIX IT.
--- NOTE | 2018-09-29 19:09 | NUR ---
PATIENT RESTING IN BED AND DENIES NEEDS AT THIS TIME. BED IN LOWEST POSITION AND CALL LIGHT WITHIN REACH. ENCOURAGED THE PATIENT TO CALL IF HE HAS NEEDS. WILL CONTINUE TO MONITOR.
[2018-09-29 20:08] VITALS: BP 108/56
[2018-09-30 00:20] VITALS: BP 107/56
[2018-09-30 04:58] VITALS: BP 124/76
[2018-09-30 07:36] LABS: BASOPHILS 0 % (0-2); EOSINOPHILS 1.8 % (0-7); HEMATOCRIT 34.5 % (42.0-54.0); HEMOGLOBIN 12.1 g/dL (13.5-17.5); IMMATURE GRANULOCYTES 0.2 % (0-5); LYMPHOCYTES 25.4 % (15-50); MCH 29.9 pg (26.0-34.0); MCHC 35.1 g/dL (31.0-37.0); MCV 85.2 fL (80.0-100.0); MEAN PLATELET VOLUME 11.2 fL (7.4-10.4); MONOCYTES 12.3 % (2-11); NEUTROPHILS 60.3 % (40-80); PLATELET COUNT 190 10x3/uL (130-400); RBC 4.05 10x6/uL (4.20-6.10); RDW 12.4 % (11.5-14.5)
[2018-09-30 07:37] VITALS: BP 127/69
[2018-09-30 07:39] LABS: WBC 6.2 10x3/uL (4.8-10.8)
[2018-09-30 07:52] LABS: INR 1.27 (0.85-1.17); PROTIME 15.3 SECONDS (11.6-15.0)
[2018-09-30 08:03] LABS: ALBUMIN 2.5 g/dL (3.4-5.0); ANION GAP 11.4 mmol/L (8-16); BILIRUBIN - TOTAL 0.86 mg/dL (0.2-1.3); CALCIUM 7.6 mg/dL (8.5-10.1); CARBON DIOXIDE 26.2 mmol/L (21.0-32.0); CHOL - HDL RATIO 4.8 ratio (2.3-4.9); CREATININE - SERUM 1.1 mg/dL (0.6-1.3); LDL-HDL RATIO 3.2 ratio (1.5-3.5); POTASSIUM - SERUM 3.6 mmol/L (3.5-5.1); PROTEIN - SERUM 5.4 g/dL (6.4-8.2)
--- NOTE | 2018-09-30 08:30 | NUR ---
BLOOD SUGAR OF 87, NO COVERAGE PER S/S. IVPB FLAGYL HUNG AT THIS TIME. CLINIMIX STARTED AT 30CC/HR. PT A/O X4, RESP EVEN AND NONLABORED ON RA. LT FA IV PATENT AND WORKING WELL. PT STATES THAT HE FEELS A LOT BETTER, NPO AT THIS TIME FOR MRI OF HIS ABD. PT DENIES ANY NEEDS AT THIS TIME. CALL LIGHT IN REACH, BEDSIDE RAILS X2, NAD NOTED, WILL CONTINUE TO MONITOR.
--- NOTE | 2018-09-30 08:52 | NUR ---
SPOKE WITH JESSICA FROM MRI AND NOTIFIED HER THAT MRI OF ABD NEEDS TO BE DONE TO DAY PER DR. CARTER.
--- NOTE | 2018-09-30 10:15 | NUR ---
PT TRANSFERED TO MRI AT THIS TIME. VIA WHEELCHAIR, NAD NOTED.
[2018-09-30 11:22] VITALS: BP 148/75
--- NOTE | 2018-09-30 11:49 | NUR ---
PT BACK TO ROOM FROM MRI. AM MEDS GIVEN LATE DUE TO PT BEING NPO FOR MRI. BLOOD SUGAR OF 118, NO COVERAGE NEEDED PER S/S. PT ASKING FOR REAL FOOD, INFOMRED HIM THAT HE IS ON A CLEAR LIQUID DIET FOR NOW. PT VERBALIZED UNDERSTANDING. PT DENIES ANY NEEDS AT THIS TIME. CALL LIGHT IN REACH, NAD NOTED, WILL CONTINUE TO MONITOR.
--- NOTE | 2018-09-30 13:26 | NUR ---
PER DR MAYFIELD, CHANGE DIET TO LOW FAT. ORDER NOTED.
[2018-09-30 15:28] VITALS: BP 109/53
--- NOTE | 2018-09-30 15:41 | NUR ---
GAVE 4MG OF MORHINE FOR PAIN LEVEL OF 6/10. IVPB LEVAQUIN HUNG AT THIS TIME. PT DENIES ANY OTHER NEEDS AT THIS TIME. CALL LIGHT IN REACH, NAD NOTED, WILL CONTINUE PLAN OF CARE.
--- NOTE | 2018-09-30 16:05 | NUR ---
RT FA IV INFILTRATD, D/C IV WITH CATHETER TIP INTACT. NEW 20G IV STARTED TO LT FA IV X2 STICKS.
--- NOTE | 2018-09-30 19:26 | NUR ---
PATIENT RESTING IN BED AND DENIES NEEDS AT THIS TIME. NO S/S OF DISTRESS. BED IN LOWEST POSITION AND CALL LIGHT WITHIN REACH. ENCOURAGED THE PATIENT TO CALL IF HE HAS NEEDS. WILL CONTINUE TO MONITOR.
[2018-09-30 19:27] VITALS: BP 105/68
--- NOTE | 2018-09-30 21:48 | NUR ---
PATIENT REQUESTED DOCTOR BE CALLED FOR SOMETHING TO HELP HIM SLEEP
--- NOTE | 2018-09-30 21:50 | NUR ---
SPOKE WITH DR. MAYFIELD WHO ORDERED 100MG TRAZADONE QHS PRN FOR SLEEP
--- NOTE | 2018-09-30 21:53 | NUR ---
NOTIFIED DATABASE DEVELOPMENT PROJECT MANAGER THAT I HAVE A NEW ORDER FOR TRAZADONE THAT NEEDS TO BE PULLED
[2018-10-01] VITALS (7 sets, daily range): BP systolic 128–198; BP diastolic 61–80
[2018-10-01 07:16] LABS: BASOPHILS 0 % (0-2); EOSINOPHILS 1.8 % (0-7); HEMATOCRIT 33.3 % (42.0-54.0); IMMATURE GRANULOCYTES 0.1 % (0-5); MCV 83.3 fL (80.0-100.0); MEAN PLATELET VOLUME 11.5 fL (7.4-10.4); MONOCYTES 11.5 % (2-11); NEUTROPHILS 59.6 % (40-80); PLATELET COUNT 189 10x3/uL (130-400); RDW 12.4 % (11.5-14.5); WBC 7.2 10x3/uL (4.8-10.8)
[2018-10-01 07:43] LABS: CALC OSMOLALITY 274 mosm/kg (275-300); CALCIUM 7.5 mg/dL (8.5-10.1); CARBON DIOXIDE 24.2 mmol/L (21.0-32.0); CHLORIDE - SERUM 105 mmol/L (98-107); GLUCOSE 112 mg/dL (74-106); LIPASE 116 U/L (73-393); POTASSIUM - SERUM 3.2 mmol/L (3.5-5.1); SODIUM 136 mmol/L (136-145); UREA NITROGEN 18 mg/dL (7-18); eGFR NON AFRICAN AMERICAN 77 mL/min (90-120)
[2018-10-01 07:45] LABS: AMYLASE - SERUM 447 U/L (25-115)
--- NOTE | 2018-10-01 08:46 | NUR ---
AM MEDS GIVEN AT THIS TIME. ALSO GAVE 40MEQ OF K FOR LOW K OF 3.2. PT DENIES ANY NEEDS AT THIS TIME. CALL LIGHT IN REACH, NAD NOTED, WILL CONTINUE TO MONITOR.
--- NOTE | 2018-10-01 10:23 | NUR ---
HELPED PT TO BATHROOM AND BACK TO BED. 72HR FECAL FAT COLLECTION STARTED. PLACED COLLECTION CONTAINER ON ICE. PT DENIES ANY OTHER NEEDS AT THIS TIME. CALL LIGHT IN REACH,NAD NOTED, WILL CONTINUE TO MONITOR.
--- NOTE | 2018-10-01 15:54 | NUR ---
HELPED PT TO BATHROOM AND BACK TO BED.
[2018-10-02] VITALS (7 sets, daily range): BP systolic 130–165; BP diastolic 61–78
[2018-10-02 07:04] LABS: BASOPHILS 0.1 % (0-2); EOSINOPHILS 1.2 % (0-7); HEMATOCRIT 33.4 % (42.0-54.0); IMMATURE GRANULOCYTES 0.1 % (0-5); LYMPHOCYTES 28.3 % (15-50); MCH 29.8 pg (26.0-34.0); MCHC 35.9 g/dL (31.0-37.0); MCV 82.9 fL (80.0-100.0); MEAN PLATELET VOLUME 11.2 fL (7.4-10.4); MONOCYTES 13.4 % (2-11); NEUTROPHILS 56.9 % (40-80); PLATELET COUNT 196 10x3/uL (130-400); RBC 4.03 10x6/uL (4.20-6.10); RDW 12.4 % (11.5-14.5); WBC 7.4 10x3/uL (4.8-10.8)
[2018-10-02 07:11] LABS: CALC OSMOLALITY 273 mosm/kg (275-300); CALCIUM 7.7 mg/dL (8.5-10.1); CARBON DIOXIDE 25.4 mmol/L (21.0-32.0); CHLORIDE - SERUM 104 mmol/L (98-107); GLUCOSE 101 mg/dL (74-106); LIPASE 87 U/L (73-393); POTASSIUM - SERUM 3.4 mmol/L (3.5-5.1); SODIUM 137 mmol/L (136-145); eGFR NON AFRICAN AMERICAN 77 mL/min (90-120)
[2018-10-02 07:30] LABS: AMYLASE - SERUM 491 U/L (25-115); UREA NITROGEN 12 mg/dL (7-18)
--- NOTE | 2018-10-02 07:42 | NUR ---
MORNING ROUNDS MADE. PT LAYING IN BED, A/O X 4. PT C/O NOT FEELING WELL AT THIS TIME. PT STATES "I DONT FEEL WELL AND THE DOCTORS WONT LISTEN TO ME". VITALS TAKEN, STABLE AT THIS TIME. RM AIR. IV TO L FA, NS @ 100, PROCAL @ 30, ZOFRAN DRIP @ 7 ML/HR, DRSG C/D/I, PATENT, NO REDNESS OR EDEMA NOTED. BREATHING EVEN AND UNLABORED. NO EDEMA NOTED. FALL PRECAUTIONS IN PLACE. YELLOW GOWN ON, NON SKID SOCKS, BROCK MAT ON BED AND TURNED ON, BED LOWERED AND LOCKED, CL IN REACH, DENIES FURTHER NEEDS AT THIS TIME. WILL CTM.
--- NOTE | 2018-10-02 08:43 | NUR ---
PT TOOK MEDS WITHOUT DIFFICULTY. BS 131, NO COVERAGE NEEDED. DENIES FURTHER CONCERNS AT THIS TIME. BED LOWERED AND LOCKED. CL IN REACH. BROCK MAT ON. WILL CTM.
--- NOTE | 2018-10-02 12:03 | NUR ---
FLAGYL COMPLETE AT 1645PM 09-28-28
--- NOTE | 2018-10-02 12:23 | NUR ---
I have reviewed this patient and I concur with the Shift Assessment completed by the Licensed Practical Nurse today this shift.
--- NOTE | 2018-10-02 13:24 | NUR ---
PT LAYING IN BED RESTING. PT STATES HE CANT EAT SALAD DUE TO HAVING TEETH WITH HIM. DIETITIAN TO ORDER SANDWHICH AND SOFT DIET. NO FUTHER CONCERNS/COMPLAINTS AT THIS TIME. FALL PRECAUTIONS IN PLACE. WILL CTM.
--- NOTE | 2018-10-02 13:25 | NUR ---
Nutrition follow up AHA diet ordered Pt reports he was not able to eat lunch today as he does not have teeth and he ordered a salad Custom ordered lunch for today Changed diet to mechanical soft Noted pt is tolerating meals On procalamine at 30mL/hour RD following
--- NOTE | 2018-10-02 13:57 | MORECARE ---
CASE MANAGEMENT DISCHARGE SUMMARY PATIENT: SHAYY FALCON UNIT: [id number] ADM DATE: 09/28/18 AGE: 77 : 42 SEX: M ROOM/BED: D.1205 AUTHOR: RENUDOC PHYSICIAN: REFERRING PHYSICIAN: DIRK MAYFIELD MD DATE OF SERVICE: 10/02/18 Discharge Plan Patient Name: SHAYY FALCON Facility: [facility]:[place] : 1940 Planned Disposition: Home Anticipated Discharge Date: 09/30/18 Discharge Date: Expected LOS: 2 Initial Reviewer: [email or web address] Initial Review Date: 09/28/2018 Generated: 10/02/18 2:56 pm Comments DCP- Discharge Planning Updated by [email or web address]: Nini Casillas on 10/02/18 12:[address] Patient Name: SHAYY FALCON Encounter No: [id number] : 1940 Primary Insurance: WELLCARE MEDICARE ADV Anticipated DC Date: 09-30-2018 Planned Disposition: Home External Planned Provider: : DCP follow-up note: Patient and family in agreement with discharge plan. No changes to plan. Case management will follow and assist as needed. Nini CasillasPatient Name: SHAYY FALCON Admission Status: ER Accout number: [id number] Admission Date: 09-28-2018 : 1940 Admission Diagnosis: Attending: DIRK MAYFIELD Current LOS: 4 Anticipated DC Date: 09-30-2018 Planned Disposition: Home Primary Insurance: WELLCARE MEDICARE ADV Discharge Planning Comments: Family friends request someone talk to pt about rehab or possible assisted living, Pt lives with 92 yo old sister. House has no air an she can barely take care of her self. The friends are talking about calling aps to have them check on pts living arrangements and his sister. They stated they eat, take meds and get around ok but they just feel like maybe both of them need a different living situation. They have no POA or family. Boat Camp Operator: Nini Casillas DCPIA - Discharge Planning Initial Assessment Updated by [email or web address]: Destiny Griffiths on 09/28/18 4:54 pm * Is the patient Alert and Oriented? Yes * How many steps to enter\exit or inside your home? one * PCP Dr. Cota * Pharmacy [facility] [address] * Preadmission Environment Home with Family * ADLs Partial Dependent * Partial ADLs (Assistance needed) Medication Management * Equipment Cane Rolling Walker Wheelchair * Other Equipment blood pressure cuff * List name and contact numbers for known caregivers / representatives who currently or will assist patient after discharge: Ciara Johnson - poa- [phone] Francois Bourgeois nephserafin - [phone] Bill -friend (transportation at [place]) [phone] * Verbal permission to speak to the caregivers and representatives has been obtained from the patient. Yes * Community resources currently utilized Me[employer] Wheels Private Duty Care * Please name any agencies selected above. [facility] [employer] [facility] * Additional services required to return to the preadmission environment? No * Can the patient safely return to the preadmission environment? Yes * Has this patient been hospitalized within the prior 30 days at any hospital? Yes Last DP export: 09/28/18 3:54 p Patient Name: SHAYY FALCON Page [id number] at 1357 All edits/amendments must be made on the electronic document DICTATION DATE: 10/02/18 1356 FISH CUTTER: NOAH 10/02/18 1356 RPT#: [id number] [place] DATE: STATUS: ADM IN [facility] [address] [place] [address] END OF REPORT
[2018-10-02 16:27] LABS: T4 THYROXIN - FREE 1.27 ng/dL (0.76-1.46); THYROID STIMULATING HORMONE 1.22 uIU/mL (0.36-3.74)
[2018-10-03 04:00] VITALS: BP 191/89
[2018-10-03 06:44] LABS: BASOPHILS 0 % (0-2); EOSINOPHILS 1.5 % (0-7); HEMATOCRIT 35.1 % (42.0-54.0); HEMOGLOBIN 12.6 g/dL (13.5-17.5); IMMATURE GRANULOCYTES 0.1 % (0-5); LYMPHOCYTES 29.9 % (15-50); MCH 29.8 pg (26.0-34.0); MCHC 35.9 g/dL (31.0-37.0); MEAN PLATELET VOLUME 11.4 fL (7.4-10.4); MONOCYTES 12.8 % (2-11); NEUTROPHILS 55.7 % (40-80); PLATELET COUNT 182 10x3/uL (130-400); RBC 4.23 10x6/uL (4.20-6.10); RDW 12.7 % (11.5-14.5); WBC 7.3 10x3/uL (4.8-10.8)
--- NOTE | 2018-10-03 06:50 | NUR ---
INITIAL ROUNDING, PATIENT IS ASLEEP ON HIS LEFT SIDE, LIGHT IS ON. CALL LIGHT IN REACH
[2018-10-03 07:22] LABS: CALC OSMOLALITY 275 mosm/kg (275-300); CARBON DIOXIDE 26.5 mmol/L (21.0-32.0); CHLORIDE - SERUM 105 mmol/L (98-107); GLUCOSE 96 mg/dL (74-106); LIPASE 105 U/L (73-393); POTASSIUM - SERUM 3.4 mmol/L (3.5-5.1); SODIUM 138 mmol/L (136-145); UREA NITROGEN 13 mg/dL (7-18); eGFR NON AFRICAN AMERICAN 77 mL/min (90-120)
[2018-10-03 07:38] LABS: AMYLASE - SERUM 518 U/L (25-115)
[2018-10-03 07:46] VITALS: BP 155/83
--- NOTE | 2018-10-03 09:23 | NUR ---
THE PATIENT REFUSED TO TAKE A SHOWER AND SIT IN THE BEDSIDE CHAIR, HE STATES "NO, I DONT FEEL LIKE IT".
--- NOTE | 2018-10-03 11:58 | NUR ---
DR MCCALLUM VISITED THE PATIENT AND WAS NOTIFIED OF THE SPECIMEN MALFUNCTION, THE STOOL NOT BEING COLLECTED EACH TIME AND NOT ON ICE. THE LAB ORDER WAS CANCELLED AT THIS TIME
[2018-10-03 14:11] LABS: ALPHA FETOPROTEIN -(TUMOR MRK) 1.2 ng/mL (0.0-8.3); CEA 1.9 ng/mL (0.0-4.7)
[2018-10-03 16:01] VITALS: BP 144/76
--- NOTE | 2018-10-03 16:10 | NUR ---
THE PATIENT REMOVED HIS IV WHEN GETTING UP TO GO TO THE BATHROOM, CATH TIP IN TACT. WILL ATTEMPT TO RESTART IV
--- NOTE | 2018-10-03 18:09 | NUR ---
PLACED A 20 G IV TO THE LEFT FOREARM. TWO ATTEMPTS, PATIENT TOLERATED WELL
[2018-10-03 20:00] VITALS: BP 120/63
[2018-10-04] VITALS: BP 194/75
[2018-10-04 04:34] VITALS: BP 211/95
[2018-10-04 06:12] LABS: BASOPHILS 0 % (0-2); EOSINOPHILS 0.1 % (0-7); HEMATOCRIT 38.8 % (42.0-54.0); HEMOGLOBIN 14.1 g/dL (13.5-17.5); IMMATURE GRANULOCYTES 0.3 % (0-5); MCH 30.1 pg (26.0-34.0); MCHC 36.3 g/dL (31.0-37.0); MCV 82.9 fL (80.0-100.0); MEAN PLATELET VOLUME 11.8 fL (7.4-10.4); MONOCYTES 9.6 % (2-11); RBC 4.68 10x6/uL (4.20-6.10); RDW 12.8 % (11.5-14.5)
[2018-10-04 06:13] LABS: PLATELET COUNT 224 10x3/uL (130-400); WBC 11.4 10x3/uL (4.8-10.8)
[2018-10-04 06:31] LABS: ANION GAP 13.1 mmol/L (8-16); CALCIUM 8.6 mg/dL (8.5-10.1); CARBON DIOXIDE 26.3 mmol/L (21.0-32.0); CREATININE - SERUM 1.1 mg/dL (0.6-1.3)
[2018-10-04 06:34] LABS: POTASSIUM - SERUM 3.4 mmol/L (3.5-5.1)
--- NOTE | 2018-10-04 07:03 | NUR ---
INITIAL ROUNDING, PATIENT ASLEEP ON HIS RIGHT SIDE, TV AND ROOM LIGHTS OFF, BATHROOM LIGHT ON AND DOOR CRACKED. CALL LIGHT IN REACH. BROCK ALARM ON AND AUDIABLE.
[2018-10-04 07:30] VITALS: BP 142/82
--- NOTE | 2018-10-04 12:58 | NUR ---
PATIENT HAS REMOVED HIS IV AGAIN TODAY. WILL ATTEMPT TO REPLACE IV
[2018-10-04 20:11] VITALS: BP 162/90
[2018-10-05 05:42] VITALS: BP 169/84
--- NOTE | 2018-10-05 07:05 | NUR ---
PATIENT RECIEVED FROM PREVIOUS SHIFT RESTING IN BED. PATIENT ADMITTED WT CHRONIC PANCREATITIS/ILIUS. REPORTS RIGHT UPPER QUADRANT DISCOMFORT, NO NAUSEA AT THIS TIME. CL IN REACH, NO NEEDS VOICED AT THIS TIME
[2018-10-05 07:54] VITALS: BP 166/85
[2018-10-05 08:23] LABS: BASOPHILS 0.1 % (0-2); EOSINOPHILS 0.8 % (0-7); HEMATOCRIT 39.5 % (42.0-54.0); HEMOGLOBIN 14.3 g/dL (13.5-17.5); IMMATURE GRANULOCYTES 0.2 % (0-5); LYMPHOCYTES 19.2 % (15-50); MCH 30.4 pg (26.0-34.0); MCHC 36.2 g/dL (31.0-37.0); MCV 83.9 fL (80.0-100.0); MEAN PLATELET VOLUME 11.1 fL (7.4-10.4); MONOCYTES 12.7 % (2-11); PLATELET COUNT 215 10x3/uL (130-400); RBC 4.71 10x6/uL (4.20-6.10); RDW 12.8 % (11.5-14.5); WBC 12.6 10x3/uL (4.8-10.8)
[2018-10-05 08:50] LABS: ALBUMIN 3.1 g/dL (3.4-5.0); ANION GAP 9.7 mmol/L (8-16); BILIRUBIN - TOTAL 0.73 mg/dL (0.2-1.3); CALCIUM 8.3 mg/dL (8.5-10.1); CARBON DIOXIDE 27.9 mmol/L (21.0-32.0); CREATININE - SERUM 1.1 mg/dL (0.6-1.3); PROTEIN - SERUM 6.6 g/dL (6.4-8.2)
[2018-10-05 08:51] LABS: POTASSIUM - SERUM 3.6 mmol/L (3.5-5.1)
--- NOTE | 2018-10-05 09:31 | NUR ---
NOTIFIED DR WAY OF AMYLASE 617 WITH NO NEW ORDERS RECIEVED
--- NOTE | 2018-10-05 11:00 | NUR ---
Nutrition Follow Up: Pt was asleep and no family present at the time of RD visit. Interview deferred at this time. Noted per chart pt with nausea and abdominal pain after eating. Diet: Full Liquid PO Intake: 31% meal avg BM: 10/04/18 Labs reviewed - noted Amylase elevated Meds noted including Procalamine @ 30 ml/hr providing 176 kcal, 21 g protein Rec continue current OSCAR; advance when medically feasible. Rec consider increasing Procalamine to 50 ml/hr. RD following.
[2018-10-05 15:13] LABS: SPE - ALBUMIN 3.1 g/dL (2.9-4.4); SPE - ALPHA-1 GLOBULIN 0.2 g/dL (0.0-0.4); SPE - ALPHA-2 GLOBULIN 0.7 g/dL (0.4-1.0); SPE - BETA GLOBULIN 1.1 g/dL (0.7-1.3); SPE - GAMMA GLOBULIN 1.2 g/dL (0.4-1.8); SPE - M-SPIKE Not Observed g/dL (Not Observed); SPE - TOTAL PROTEIN 6.3 g/dL (6.0-8.5)
--- NOTE | 2018-10-05 15:25 | NUR ---
MORPHINE GIVEN FOR CONTINUED RIGHT UPPER QUADRANT DISCOMFORT. PATIENT REPORTS RELIEF AFTER MORPHINE IS GIVEN. PATIENT HAS EATEN SMALL AMOUNTS OF FULL LIQUID DIET MEALS. DOES REPORT NAUSES AT TIMES. CL IN EASY REACH. PATIENT REFUSED SHOWER
--- NOTE | 2018-10-05 18:37 | NUR ---
PATIENT RESTING WITH NO NEEDS VOICED. CL IN REACH
[2018-10-05 19:34] VITALS: BP 141/77
[2018-10-06 00:58] VITALS: BP 142/85
[2018-10-06 04:34] VITALS: BP 166/82
[2018-10-06 06:24] LABS: BASOPHILS 0 % (0-2); EOSINOPHILS 1.3 % (0-7); HEMATOCRIT 36.9 % (42.0-54.0); HEMOGLOBIN 13.3 g/dL (13.5-17.5); IMMATURE GRANULOCYTES 0.2 % (0-5); LYMPHOCYTES 23.2 % (15-50); MCH 30.2 pg (26.0-34.0); MCV 83.7 fL (80.0-100.0); MEAN PLATELET VOLUME 11.1 fL (7.4-10.4); MONOCYTES 14.1 % (2-11); NEUTROPHILS 61.2 % (40-80); PLATELET COUNT 183 10x3/uL (130-400); RBC 4.41 10x6/uL (4.20-6.10); RDW 12.9 % (11.5-14.5)
[2018-10-06 06:26] LABS: WBC 8.4 10x3/uL (4.8-10.8)
[2018-10-06 06:39] LABS: ALBUMIN 2.7 g/dL (3.4-5.0); ALKALINE PHOSPHATASE 53 U/L (46-116); ALT (SGPT) 27 U/L (10-68); CALC OSMOLALITY 269 mosm/kg (275-300); CALCIUM 7.8 mg/dL (8.5-10.1); CHLORIDE - SERUM 102 mmol/L (98-107); CREATININE - SERUM 0.9 mg/dL (0.6-1.3); GLUCOSE 88 mg/dL (74-106); LIPASE 337 U/L (73-393); POTASSIUM - SERUM 3.6 mmol/L (3.5-5.1); PROTEIN - SERUM 5.6 g/dL (6.4-8.2); SODIUM 135 mmol/L (136-145); UREA NITROGEN 15 mg/dL (7-18); eGFR NON AFRICAN AMERICAN 87 mL/min (90-120)
[2018-10-06 06:41] LABS: AMYLASE - SERUM 521 U/L (25-115)
--- NOTE | 2018-10-06 07:30 | NUR ---
ASSESSMENT COMPLETE. IV TO L FA PATENT. BROCK TURPIN IN USE. AUGER MILL OPERATOR SHOWING CAF 61 PER TECH. DENIES ANY NEEDS AT THIS TIME.
[2018-10-06 08:00] VITALS: BP 159/99
--- NOTE | 2018-10-06 11:00 | NUR ---
NO CHANGES NOTED.
[2018-10-06 12:05] VITALS: BP 168/79
--- NOTE | 2018-10-06 15:00 | NUR ---
RESTING QUIETLY IN BED.
[2018-10-06 16:00] VITALS: BP 148/72
--- NOTE | 2018-10-06 17:15 | NUR ---
TALKING ON PHONE. DENIES ANY NEEDS AT THIS TIME.
[2018-10-06 20:20] VITALS: BP 176/88
--- NOTE | 2018-10-06 22:05 | NUR ---
RECIEVED UP IN BED TALKING ON TELEPHONE. CAME BACK LATER TO ASSESS. ALERT AND ORIENTED X4. UP AD INEZ TO B/R. IV TO LEFT FA WITH PROCALAMINE AT 30ML/HR AND NS AT 100ML/HR. ALSO, ZOFRAN. TELEMETRY IN PLACE. RECIEVED SHOWER THIS SHIFT. CONT TO DO FSBS Q4 HR. DENIES ANY NEEDS.
--- NOTE | 2018-10-06 23:17 | NUR ---
IV LEAKING. RESTARTED 22GA X 1 ATTEMPT TO LEFT HAND. OTHER IV D/C'D.
[2018-10-07 00:59] VITALS: BP 166/75
[2018-10-07 05:31] VITALS: BP 184/84
--- NOTE | 2018-10-07 07:15 | NUR ---
AM ROUNDS COMPLETED. INTRODUCED MYSELF TO PT PRIMARY RN FOR TODAYS SHIFT. PT IS A&O LYING ON HIS L.SIDE IN BED RESTING QUIETLY. NO CURRENT NEEDS AT THIS TIME. WILL CTM.
[2018-10-07 07:22] VITALS: BP 138/76
--- NOTE | 2018-10-07 09:04 | NUR ---
PT VERY IRRITABLE AND TIRED AND WANTS TO JUST REST AND BE LEFT ALONE. PT WAS ABLE TO SWALLOW ALL HIS MORNING MEDICATIONS. PT NOT WANTING TO EAT AND STATES TO PLEASE LEAVE HIS TRAY AND LET HIM REST. WILL ALLOW HIM TO DO SO. NO FURTHER NEEDS. CL IN REACH. BED IN LOWEST, SIDE RAILS X2. WILL CTM.
[2018-10-07 09:50] LABS: BASOPHILS 0.2 % (0-2); EOSINOPHILS 1.2 % (0-7); HEMATOCRIT 35.8 % (42.0-54.0); HEMOGLOBIN 12.8 g/dL (13.5-17.5); IMMATURE GRANULOCYTES 0.2 % (0-5); LYMPHOCYTES 20.6 % (15-50); MCHC 35.8 g/dL (31.0-37.0); MCV 83.8 fL (80.0-100.0); MEAN PLATELET VOLUME 10.6 fL (7.4-10.4); MONOCYTES 12.1 % (2-11); NEUTROPHILS 65.7 % (40-80); PLATELET COUNT 167 10x3/uL (130-400); RBC 4.27 10x6/uL (4.20-6.10); RDW 12.9 % (11.5-14.5); WBC 6.6 10x3/uL (4.8-10.8)
[2018-10-07 10:13] LABS: ALBUMIN 2.6 g/dL (3.4-5.0); ALKALINE PHOSPHATASE 52 U/L (46-116); ALT (SGPT) 29 U/L (10-68); CALC OSMOLALITY 272 mosm/kg (275-300); CALCIUM 7.8 mg/dL (8.5-10.1); CARBON DIOXIDE 24.6 mmol/L (21.0-32.0); CHLORIDE - SERUM 102 mmol/L (98-107); CREATININE - SERUM 0.9 mg/dL (0.6-1.3); GLUCOSE 83 mg/dL (74-106); LIPASE 98 U/L (73-393); POTASSIUM - SERUM 3.5 mmol/L (3.5-5.1); PROTEIN - SERUM 5.6 g/dL (6.4-8.2); SODIUM 137 mmol/L (136-145); UREA NITROGEN 13 mg/dL (7-18); eGFR NON AFRICAN AMERICAN 87 mL/min (90-120)
[2018-10-07 10:15] LABS: AMYLASE - SERUM 427 U/L (25-115)
[2018-10-07 11:15] VITALS: BP 135/68
--- NOTE | 2018-10-07 12:31 | NUR ---
FSBS 90. PT SITTING UP IN BED VISITING WITH A FRIEND. PT DENIES ANY CURRENT PAIN OR NAUSEA. PT WANTING OFF HIS ZOFRAN DRIP TO SEE IF HE CAN TOLERATE IT. WILL KEEP IT OFF AND SEE HOW HE DOES WITH LUNCH. EMPTIED URINAL OF 325ML CLEAR YELLOW URINE. NO CURRENT NEEDS. WILL CTM.
[2018-10-07 16:20] VITALS: BP 111/67
--- NOTE | 2018-10-07 16:22 | NUR ---
PT CALLED FOR ASSISTANCE TO BR. CHANGED OUT LINENS PT ACCIDENTLY SPILLED SOME OF HIS LUNCH ON IT. PT WAS ABLE TO TOLERATE 75% OF HIS LUNCH AND IS STILL OFF THE ZOFRAN DRIP AND DENIES ANY NAUSEA OR DISCOMFORT. ASSISTED PT BACK INTO BED. HE IS VERY RESERVED AND VERY SLEEPY. PT STATES HE JUST LIKES TO SLEEP DURING THE DAY AND DOESNT WANT ANYTHING OR TO BE BOTHERED. PT REFUSING TO BE STUCK FOR FSBS AND REQUESTING WE DO IT LESS HIS SUGARS HAVE BEEN TRENDING VERY STABLE, WILL CHECK WITH PRIMARY ABOUT THIS. PT VOICED THANKS AND IS WAITING ON DINNER. NO CURRENT NEEDS. CL IN REACH, BED IN LOWEST, SIDE RAILS X2 AND BROCK MAT IN PLACE. WILL CPOC.
--- NOTE | 2018-10-07 16:50 | NUR ---
PT SITTING UP IN BED AND WAS ABLE TO EAT ALL OF HIS SOUP FOR DINNER. PT STATES HE IS FEELING BETTER OVERALL AND WANTS TO BE DISCHARGED SOON. NO CURRENT NEEDS AT THIS TIME. WILL CPOC.
--- NOTE | 2018-10-07 19:40 | NUR ---
PATIENT RESTING IN BED WITH GUESTS AT BEDSIDE WITH NO S/S OF DISTRESS. PATIENT DENIES NEEDS AT THIS TIME. BED IN LOWEST POSITION AND CALL LIGHT WITHIN REACH. ENCOURAGED THE PATIENT TO CALL IF HE HAS NEEDS. WILL CONTINUE TO MONITOR.
[2018-10-07 19:43] VITALS: BP 114/70
[2018-10-08 01:46] VITALS: BP 130/74
[2018-10-08 05:30] VITALS: BP 150/92
[2018-10-08 06:40] LABS: BASOPHILS 0 % (0-2); EOSINOPHILS 0.5 % (0-7); HEMOGLOBIN 12.7 g/dL (13.5-17.5); IMMATURE GRANULOCYTES 0.2 % (0-5); MCHC 35.3 g/dL (31.0-37.0); MCV 85.1 fL (80.0-100.0); MEAN PLATELET VOLUME 11.6 fL (7.4-10.4); MONOCYTES 11.8 % (2-11); NEUTROPHILS 72.5 % (40-80); PLATELET COUNT 199 10x3/uL (130-400); RBC 4.23 10x6/uL (4.20-6.10); RDW 13.1 % (11.5-14.5)
[2018-10-08 06:47] LABS: WBC 8.7 10x3/uL (4.8-10.8)
[2018-10-08 07:09] LABS: ALBUMIN 2.7 g/dL (3.4-5.0); ALKALINE PHOSPHATASE 52 U/L (46-116); ALT (SGPT) 29 U/L (10-68); BILIRUBIN - TOTAL 0.48 mg/dL (0.2-1.3); CALC OSMOLALITY 282 mosm/kg (275-300); CHLORIDE - SERUM 104 mmol/L (98-107); GLUCOSE 144 mg/dL (74-106); LIPASE 118 U/L (73-393); POTASSIUM - SERUM 3.6 mmol/L (3.5-5.1); PROTEIN - SERUM 5.8 g/dL (6.4-8.2); SODIUM 140 mmol/L (136-145); UREA NITROGEN 15 mg/dL (7-18); eGFR NON AFRICAN AMERICAN 77 mL/min (90-120)
[2018-10-08 07:10] LABS: AMYLASE - SERUM 428 U/L (25-115)
[2018-10-08 07:14] VITALS: BP 110/71
--- NOTE | 2018-10-08 07:50 | NUR ---
PT RESTING COMFORTABLY IN BED WITH EYES CLOSED, RESP EVEN AND ON LABORED RA. LT HAND IV NS AT 100CC/HR. MONITOR SHOWING SR 80 WITH PAC, PVC. CALL LIGHT IN REACH, NAD NOTED, WILL CONTINUE PLAN OF CARE.
--- NOTE | 2018-10-08 08:09 | NUR ---
AM MEDS GIVEN AT THIS TIME. EXCEPT DELTOSON, WAITING ON PHARMACY TO BRING IT. PT DENIES ANY NEEDS AT THIS TIME. CALL LIGHT IN REACH, NAD NOTED, WILL CONTINUE TO MONITOR.
--- NOTE | 2018-10-08 09:34 | NUR ---
CALLED PHARMACY AND SPOKE WITH MAYR, INFORMED HIM THAT I NEED PREDNISONE FOR PT.
[2018-10-08 12:14] VITALS: BP 119/68
--- NOTE | 2018-10-08 12:54 | NUR ---
PT TO CT AT THIS TIME.
--- NOTE | 2018-10-08 13:13 | NUR ---
PT TRANSFERED BACK TO ROOM FROM CT, NEW 20G IV TO RT FA.
[2018-10-08 16:00] VITALS: BP 112/75
[2018-10-08] MEDS ORDERED: PRAVACHOL40 MG PO (18:15)
--- NOTE | 2018-10-08 19:42 | NUR ---
PATIENT RESTING IN BED WITH NO S/S OF DISTRESS AND FAMILY AT BEDSIDE. REMOVED PIV FROM THE PATIENT'S LEFT HAND. TIP INTACT. PATIENT AND FAMILY DENY OTHER NEEDS AT THIS TIME. BED IN LOWEST POSITION AND CALL LIGHT WITHIN REACH. ENCOURAGED THE PATIENT TO CALL IF HE HAS NEEDS. WILL CONTINUE TO MONITOR.
[2018-10-08 20:00] VITALS: BP 121/79
[2018-10-09 00:26] VITALS: BP 158/68
[2018-10-09 04:00] VITALS: BP 143/85
[2018-10-09 05:46] LABS: BASOPHILS 0 % (0-2); EOSINOPHILS 0.1 % (0-7); HEMATOCRIT 34.5 % (42.0-54.0); HEMOGLOBIN 12.2 g/dL (13.5-17.5); IMMATURE GRANULOCYTES 0.3 % (0-5); LYMPHOCYTES 10.6 % (15-50); MCH 29.8 pg (26.0-34.0); MCHC 35.4 g/dL (31.0-37.0); MCV 84.4 fL (80.0-100.0); MEAN PLATELET VOLUME 11.5 fL (7.4-10.4); MONOCYTES 9.2 % (2-11); NEUTROPHILS 79.8 % (40-80); PLATELET COUNT 184 10x3/uL (130-400); RBC 4.09 10x6/uL (4.20-6.10); RDW 13.2 % (11.5-14.5); WBC 7.4 10x3/uL (4.8-10.8)
[2018-10-09 06:19] LABS: ALBUMIN 2.6 g/dL (3.4-5.0); ALKALINE PHOSPHATASE 52 U/L (46-116); ALT (SGPT) 29 U/L (10-68); BILIRUBIN - TOTAL 0.44 mg/dL (0.2-1.3); CALC OSMOLALITY 280 mosm/kg (275-300); CALCIUM 7.8 mg/dL (8.5-10.1); CARBON DIOXIDE 27.2 mmol/L (21.0-32.0); CHLORIDE - SERUM 104 mmol/L (98-107); CREATININE - SERUM 0.9 mg/dL (0.6-1.3); GLUCOSE 153 mg/dL (74-106); LIPASE 129 U/L (73-393); POTASSIUM - SERUM 3.5 mmol/L (3.5-5.1); PROTEIN - SERUM 5.5 g/dL (6.4-8.2); SODIUM 139 mmol/L (136-145); UREA NITROGEN 12 mg/dL (7-18); eGFR NON AFRICAN AMERICAN 87 mL/min (90-120)
[2018-10-09 06:31] LABS: AMYLASE - SERUM 467 U/L (25-115)
[2018-10-09] MEDS ORDERED: PROTONIX40 MG PO (07:37)
[2018-10-09] MEDS ORDERED: PREDNISONE20 MG PO (07:40)
[2018-10-09] MEDS ORDERED: PREDNISONE10 MG PO (07:41)
[2018-10-09 08:04] VITALS: BP 161/82
--- NOTE | 2018-10-09 08:17 | NUR ---
AM MEDS GIVEN PT IN BED, FINISHING EATING BREAKFAST. A/O X4, RESP EVEN AND NONLABORED ON RA. RT FA IV INFUSING NS AT 100CC/HR. PT DENIES ANY NEEDS AT THIS TIME. CALL LIGHT IN REACH, NAD NOTED, WILL CONTINUE TO MONITOR.
--- NOTE | 2018-10-09 12:50 | NUR ---
PT REFUSING TO SIGN DISCHARGE PAPERS, HIS SISTER WANTS HIM TO BE TRANSFERED TO [facility] INSTEAD OF GOING HOME. TRIED EXPLAINIG TO PT AND FAMILY AT BEDSIDE THAT DR. AVENDANO WILL REFER HIM TO [facility] OUTPAIENT. PT STILL REFUSING TO SIGN PAPER WORK STATING " MY SISTER TOLD ME NOT TO SIGN THE PAPERWORK AND THAT I CANNOT COME HOME, I HAVE TO GO TO [facility] FROM HERE." NOTIFIED MEL THORNE APN AND PROVIDED HER WITH PT'S SISTER'S (SUZANNA) PHONE NUMBER SO DR. MAYFIELD CAN CALL HER AND EXPLAINED TO HER THAT PT IS OK TO GO HOME AND THEN GO TO [facility] WHEN THEY SCHEDULE HIS PROCEDURE.
[2018-10-09 14:59] VITALS: BP 133/80
--- NOTE | 2018-10-09 15:24 | NUR ---
PT INFORMED THIS NURSE NOW THAT HIS SISTER WANTS HIM TO GO HOME INSTEAD OF GOING TO SNF. INFORMED PT THAT THE ORDER FOR DISCHARGE WAS CANCELLED FOR TODAY AND WE WILL HAVE TO SEE WHAT THE DR. MAYFIELD WANTS TO DO IN THE AM.
--- NOTE | 2018-10-09 15:31 | NUR ---
TRIED CALLING DR. MAYFIELD, NO ANSWER.
--- NOTE | 2018-10-09 16:28 | NUR ---
BLOOD SUGAR OF 348, 12UNITS OF INSULIN GIVEN PER S/S. PT IN BED, DENIE ANY NEEDS AT THIS TIME. CALL LIGHT IN REACH, NAD NOTED.
--- NOTE | 2018-10-09 19:47 | MORECARE ---
CASE MANAGEMENT DISCHARGE SUMMARY PATIENT: SHAYY FALCON UNIT: [id number] ADM DATE: 09/28/18 AGE: 78 : 42 SEX: M ROOM/BED: D.1205 AUTHOR: RENUDOC PHYSICIAN: REFERRING PHYSICIAN: DIRK MAYFIELD MD DATE OF SERVICE: 10/09/18 Discharge Plan Patient Name: SHAYY FALCON Facility: [facility]:[place] : 1940 Planned Disposition: Home Anticipated Discharge Date: 09/30/18 Discharge Date: Expected LOS: 2 Initial Reviewer: [email or web address] Initial Review Date: 09/28/2018 Generated: 10/09/18 8:47 pm Comments DCP- Discharge Planning Updated by [id number]: Jayda Shin on 10/09/18 6:[address] Patient was to discharge today home with sister Ciara (age91) Patient is ready to go home but sister was requesting him have some rehab prior to going home. After patient's daughter explained that patient could go to [facility] as outpatient and that patient would have to most likely have to go to SNF for rehab. Ciara is now insisting that patient be discharged home. CM spoke with patient's daughter and son to see if they believe that him going to Ciara's home (his home) would be a safe discharge. They both agree that it would be safe. Patient states that he can get around on his own at home. He currently has AAA for aide assistance to help with cleaning and meals on wheels. He will also have house calls to evaluate him after discharge. CM will continue to follow and assist as needed with discharge planning / needs. DCP- Discharge Planning Updated by [email or web address]: Nini Pizarroman on 10/02/18 12:[address] Patient Name: SHAYY FALCON Encounter No: [id number] : 1940 Primary Insurance: WELLCARE MEDICARE ADV Anticipated DC Date: 09-30-2018 Planned Disposition: Home External Planned Provider: : DCP follow-up note: Patient and family in agreement with discharge plan. No changes to plan. Case management will follow and assist as needed. Nini CasillasPatient Name: SHAYY FALCON Admission Status: ER Accout number: [id number] Admission Date: 09-28-2018 : 1940 Admission Diagnosis: Attending: DIRK MAYFIELD Current LOS: 4 Anticipated DC Date: 09-30-2018 Planned Disposition: Home Primary Insurance: WELLCARE MEDICARE ADV Discharge Planning Comments: Family friends request someone talk to pt about rehab or possible assisted living, Pt lives with 92 yo old sister. House has no air an she can barely take care of her self. The friends are talking about calling aps to have them check on pts living arrangements and his sister. They stated they eat, take meds and get around ok but they just feel like maybe both of them need a different living situation. They have no POA or family. Jewel Stripper: Nini TSAI - Discharge Planning Initial Assessment Updated by [email or web address]: Destiny Griffiths on 09/28/18 4:54 pm * Is the patient Alert and Oriented? Yes * How many steps to enter\exit or inside your home? one * PCP Dr. Cota * Pharmacy [facility] [place] [facility] [address] * Preadmission Environment Home with Family * ADLs Partial Dependent * Partial ADLs (Assistance needed) Medication Management * Equipment Cane Rolling Walker Wheelchair * Other Equipment blood pressure cuff * List name and contact numbers for known caregivers / representatives who currently or will assist patient after discharge: Ciara brink- [phone] Francois meyer - [phone] Bill -friend (transportation at [place]) [phone] * Verbal permission to speak to the caregivers and representatives has been obtained from the patient. Yes * Community resources currently utilized [employer] Wheels Private Duty Care * Please name any agencies selected above. [facility] [employer] [facility] * Additional services required to return to the preadmission environment? No * Can the patient safely return to the preadmission environment? Yes * Has this patient been hospitalized within the prior 30 days at any hospital? Yes Coverage Notice Reviewer: [id number] Christelle Shin Notice Issued Date-Time: 10/09/2018 9:50 Notice Type: IM Discharge Notice Notice Delivered To: Patient Relationship to Patient: Self Car Scrubber Name: Delivery Method: HAND - Hand Delivered Ayaka Days: Prior Verbal Notification: Recipient Understood Notice: Yes Recipient Signature: Yes Med Rec Note Co-signed by Attending: Coverage Notice Comment: Last DP export: 10/02/18 12:56 p Patient Name: SHAYY FALCON Page [id number] at 1947 All edits/amendments must be made on the electronic document DICTATION DATE: 10/09/181945 FOUNDRY PATTERNMAKER: NOAH 10/09/181945 RPT#: [id number] DC DATE: STATUS: ADM IN [facility] [address] [place] [address] END OF REPORT
[2018-10-09 20:00] VITALS: BP 139/69
[2018-10-10] VITALS: BP 140/95
[2018-10-10 04:00] VITALS: BP 160/81
--- NOTE | 2018-10-10 06:13 | NUR ---
PT IN BED IN LOW FOWLERS POSITION. ALERT AND ORIENTED X4. RESPIRATIONS EVEN AND UNLABORED. VITAL SIGNS STABLE AND AFEBRILE. NO VISUAL CUES OF DISTRESS NOTED. DENIES ANY OTHER NEEDS AT THIS TIME. BED LOW, SIDE RAILS UP X2. CALL LIGHT IN REACH. WILL CONTINUE TO MONITOR.
[2018-10-10 07:34] LABS: BASOPHILS 0 % (0-2); EOSINOPHILS 0.4 % (0-7); HEMATOCRIT 35.7 % (42.0-54.0); HEMOGLOBIN 12.8 g/dL (13.5-17.5); IMMATURE GRANULOCYTES 0.2 % (0-5); LYMPHOCYTES 24.5 % (15-50); MCH 30.2 pg (26.0-34.0); MCHC 35.9 g/dL (31.0-37.0); MCV 84.2 fL (80.0-100.0); MEAN PLATELET VOLUME 11.4 fL (7.4-10.4); MONOCYTES 9.7 % (2-11); NEUTROPHILS 65.2 % (40-80); PLATELET COUNT 173 10x3/uL (130-400); RBC 4.24 10x6/uL (4.20-6.10); RDW 13.5 % (11.5-14.5)
[2018-10-10 07:40] LABS: WBC 9.3 10x3/uL (4.8-10.8)
[2018-10-10 07:49] VITALS: BP 139/66
[2018-10-10 08:11] LABS: ALBUMIN 2.7 g/dL (3.4-5.0); ALKALINE PHOSPHATASE 48 U/L (46-116); ALT (SGPT) 28 U/L (10-68); BILIRUBIN - TOTAL 0.64 mg/dL (0.2-1.3); CALC OSMOLALITY 277 mosm/kg (275-300); CALCIUM 7.9 mg/dL (8.5-10.1); CARBON DIOXIDE 27.2 mmol/L (21.0-32.0); CHLORIDE - SERUM 104 mmol/L (98-107); CREATININE - SERUM 0.9 mg/dL (0.6-1.3); LIPASE 156 U/L (73-393); PROTEIN - SERUM 5.8 g/dL (6.4-8.2); SODIUM 140 mmol/L (136-145); UREA NITROGEN 11 mg/dL (7-18); eGFR NON AFRICAN AMERICAN 87 mL/min (90-120)
[2018-10-10 08:15] LABS: AMYLASE - SERUM 526 U/L (25-115); GLUCOSE 90 mg/dL (74-106)
--- NOTE | 2018-10-10 08:31 | NUR ---
AM MEDS GIVEN AT THIS TIME. PT DETERMINED THAT HE IS GOING HOME TODAY. A/O X4, RESP EVEN AND REGULAR ON RA. RT FA IV SL. PT UP TO SIDE OF BED EATING BREAKFAST, DENIES ANY OTHER NEEDS AT THIS TIME. CALL LIGHT IN REACH, NAD NOTED, WILL CONTINUE PLAN OF CARE.
--- NOTE | 2018-10-10 09:00 | NUR ---
40MEQ OF K GIVEN FOR LOW K OF 3.0.
--- NOTE | 2018-10-10 11:47 | NUR ---
PROVIDED VERBAL AND WRITTEN DISCHARGE TEACHING, PT VERBALIZED UNDERSTANDING REGARDING TEACHING. D/C RT FA IV WITH CATHETER TIP INTACT, PT WAITING ON RIDE, REFUSED TO HAVE BLOOD SUGAR CHECKED. WILL NOTIFY THIS NURSE WHEN READY FOR WHEELCHAIR.
--- NOTE | 2018-10-10 13:19 | NUR ---
PT LEFT UNIT VIA WHEELCHAIR, WITH ALL BELONGINGS, ACCOMPANIED BY MALE FRIEND. NAD NOTED.
--- NOTE | 2018-10-11 09:24 | MORECARE ---
CASE MANAGEMENT DISCHARGE SUMMARY PATIENT: SHAYY FALCON UNIT: [id number] ADM DATE: 09/28/18 AGE: 78 : 42 SEX: M ROOM/BED: D.1205 AUTHOR: ABDIAS SEARS PHYSICIAN: REFERRING PHYSICIAN: DIRK MAYFIELD MD DATE OF SERVICE: 10/11/18 Discharge Plan Patient Name: SHAYY FALCON Facility: [facility]:[place] : 1940 Planned Disposition: Home Anticipated Discharge Date: 09/30/18 Discharge Date: 10/10/2018 Expected LOS: 2 Initial Reviewer: [email or web address] Initial Review Date: 09/28/2018 Generated: 10/11/18 10:24 am DCP- Discharge Planning Updated by [email or web address]: Jayda Shin on 10/09/18 6:[address] Patient was to discharge today home with sister Ciara (age91) Patient is ready to go home but sister was requesting him have some rehab prior to going home. After patient's daughter explained that patient could go to [facility] as outpatient and that patient would have to most likely have to go to SNF for rehab. Ciara is now insisting that patient be discharged home. CM spoke with patient's daughter and son to see if they believe that him going to Ciara's home (his home) would be a safe discharge. They both agree that it would be safe. Patient states that he can get around on his own at home. He currently has AAA for aide assistance to help with cleaning and meals on wheels. He will also have house calls to evaluate him after discharge. CM will continue to follow and assist as needed with discharge planning / needs. DCP- Discharge Planning Updated by [id number]: Nini Pizarroman on 10/02/18 12:[address] Patient Name: SHAYY FALCON Encounter No: [id number] : 1940 Primary Insurance: WELLCARE MEDICARE ADV Anticipated DC Date: 09-30-2018 Planned Disposition: Home External Planned Provider: : DCP follow-up note: Patient and family in agreement with discharge plan. No changes to plan. Case management will follow and assist as needed. Nini CasillasPatient Name: SHAYY FALCON Admission Status: ER Accout number: [id number] Admission Date: 09-28-2018 : 1940 Admission Diagnosis: Attending: DIRK MAYFIELD Current LOS: 4 Anticipated DC Date: 09-30-2018 Planned Disposition: Home Primary Insurance: WELLCARE MEDICARE ADV Discharge Planning Comments: Family friends request someone talk to pt about rehab or possible assisted living, Pt lives with 92 yo old sister. House has no air an she can barely take care of her self. The friends are talking about calling aps to have them check on pts living arrangements and his sister. They stated they eat, take meds and get around ok but they just feel like maybe both of them need a different living situation. They have no POA or family. Software Quality Manager: Nini Casillas DCPIA - Discharge Planning Initial Assessment Updated by [id number]: Destiny Griffiths on 09/28/18 4:54 pm * Is the patient Alert and Oriented? Yes * How many steps to enter\exit or inside your home? one * PCP Dr. Cota * [facility] [address] * Preadmission Environment Home with Family * ADLs Partial Dependent * Partial ADLs (Assistance needed) Medication Management * Equipment Cane Rolling Walker Wheelchair * Other Equipment blood pressure cuff * List name and contact numbers for known caregivers / representatives who currently or will assist patient after discharge: Ciara Bourgeois porochelle- [phone] Francois Bourgeois nephserafin - [phone] Bill -friend (transportation at [place]) [phone] * Verbal permission to speak to the caregivers and representatives has been obtained from the patient. Yes * Community resources currently utilized Meals on Wheels Private Duty Care * Please name any agencies selected above. [facility] [employer] [facility] * Additional services required to return to the preadmission environment? No * Can the patient safely return to the preadmission environment? Yes * Has this patient been hospitalized within the prior 30 days at any hospital? Yes Coverage Notice Reviewer: [id number] - Jayda Shin Notice Issued Date-Time: 10/09/2018 9:50 Notice Type: IM Discharge Notice Notice Delivered To: Patient Relationship to Patient: Self Web Architect Name: Delivery Method: HAND - Hand Delivered Ayaka Days: Prior Verbal Notification: Recipient Understood Notice: Yes Recipient Signature: Yes Med Rec Note Co-signed by Attending: Coverage Notice Comment: Last DP export: 10/09/18 6:47 pm Patient Name: SHAYY FALCON Page [id number] at 0924 All edits/amendments must be made on the electronic document DICTATION DATE: 10/11/18923 MERCHANDISING MANAGER: NOAH 10/11/18923 RPT#: [id number] DC DATE:10/10/18 STATUS: DIS IN [facility] [address] [place] [address] END OF REPORT
== END 2018-10-10 13:20 | disposition home or self-care (01) | DRG 438 ==
LOC: D.ER 12:30 → D.M3 16:19
PROVIDERS: Emergency Medicine; Family Medicine; Internal Medicine Gastroenterology; ADMIT Internal Medicine Nephrology; ATTEND Internal Medicine Nephrology
DX: K86.1 Other chronic pancreatitis (principal); E43 Unspecified severe protein-calorie malnutrition; N17.9 Acute kidney failure, unspecified; K52.9 Noninfective gastroenteritis and colitis, unspecified; E11.9 Type 2 diabetes mellitus without complications; I10 Essential (primary) hypertension; I25.10 Atherosclerotic heart disease of native coronary artery without angina pectoris; Z68.23 Body mass index [BMI] 23.0-23.9, adult

== ENCOUNTER 2019-08-26 09:28 | Emergency (ER) | payer MEDICARE, MEDICAID ==
[~2019-08-26] VITALS: Ht 180.3 cm; Wt 75.0 kg
[~2019-08-26 09:28] MED LIST changes: +CATAPRES0.1 MG PO; +CREON (PANCRELI1 CAP PO; +MIRALAX17 GM PO; +PRAVACHOL40 MG PO; +PREDNISONE10 MG PO; +PREDNISONE20 MG PO; +PROTONIX40 MG PO; +ULTRAM50 MG PO
[2019-08-26 09:39] VITALS: Ht 180.3 cm; Wt 75.0 kg
[2019-08-26] MEDS ORDERED: [UNRECOGNIZED DRUG - REMARK] (09:43)
[2019-08-26 10:21] LABS: GLUCOSE 100 mg/dL (NEGATIVE); NITRITE NEGATIVE (NEGATIVE)
[2019-08-26 10:22] LABS: BILIRUBIN NEGATIVE (NEGATIVE); KETONE NEGATIVE (NEGATIVE); UROBILINOGEN NORMAL (NORMAL)
[2019-08-26 10:33] LABS: BASOPHILS 0.1 % (0-2); EOSINOPHILS 1.7 % (0-7); HEMATOCRIT 38.6 % (42.0-54.0); HEMOGLOBIN 13.2 g/dL (13.5-17.5); IMMATURE GRANULOCYTES 0.1 % (0-5); LYMPHOCYTES 15.6 % (15-50); MCH 30.5 pg (26.0-34.0); MCHC 34.2 g/dL (31.0-37.0); MCV 89.1 fL (80.0-100.0); MEAN PLATELET VOLUME 10.3 fL (7.4-10.4); MONOCYTES 10.8 % (2-11); NEUTROPHILS 71.7 % (40-80); PLATELET COUNT 205 10x3/uL (130-400); RBC 4.33 10x6/uL (4.20-6.10); RDW 12.8 % (11.5-14.5); WBC 8.1 10x3/uL (4.8-10.8)
[2019-08-26 10:34] LABS: CALC OSMOLALITY 286 mosm/kg (275-300); CALCIUM 8.2 mg/dL (8.5-10.1); CARBON DIOXIDE 29.2 mmol/L (21.0-32.0); CHLORIDE - SERUM 106 mmol/L (98-107); GLUCOSE 133 mg/dL (74-106); POTASSIUM - SERUM 3.2 mmol/L (3.5-5.1); SODIUM 143 mmol/L (136-145); UREA NITROGEN 13 mg/dL (7-18); eGFR NON AFRICAN AMERICAN 77 mL/min (90-120)
[2019-08-26 11:17] VITALS: BP 131/83
== END 2019-08-26 11:18 | disposition home or self-care (01) ==
LOC: D.ER 09:28
PROVIDERS: Emergency Medicine
DX: C61 Malignant neoplasm of prostate (principal); E87.6 Hypokalemia; R10.2 Pelvic and perineal pain; E11.9 Type 2 diabetes mellitus without complications; I10 Essential (primary) hypertension; Z79.84 Long term (current) use of oral hypoglycemic drugs

== ENCOUNTER 2019-09-02 11:15 | Emergency (ER) | payer MEDICARE, MEDICAID ==
[~2019-09-02] VITALS: Ht 180.3 cm; Wt 75.0 kg
[~2019-09-02 11:15] MED LIST changes: +[UNRECOGNIZED DRUG - REMARK]
[2019-09-02 11:38] VITALS: Ht 180.3 cm; Wt 75.0 kg
[2019-09-02 13:38] VITALS: BP 121/68
== END 2019-09-02 13:40 | disposition home or self-care (01) ==
LOC: D.ER 11:15
DX: R10.2 Pelvic and perineal pain (principal); C61 Malignant neoplasm of prostate; E11.9 Type 2 diabetes mellitus without complications; I10 Essential (primary) hypertension; Z79.84 Long term (current) use of oral hypoglycemic drugs

== ENCOUNTER 2019-09-12 12:05 | Inpatient (IN) | payer MEDICARE, MEDICAID ==
[~2019-09-12] VITALS: Ht 180.3 cm; Wt 73.2 kg
--- NOTE | ~2019-09-12 | OP ---
PATIENT NAME: SHAYY FALCON MEDICAL RECORD: [id number] :44 LOCATION:D.MS José2225 ADMISSION DATE:09/16/19 SURGEON: RAZ MUELLER MD DATE OF OPERATION: 09/19/2019 PREOPERATIVE DIAGNOSIS: Lumbar spinal stenosis at L4-L5, left with foraminal stenosis. POSTOPERATIVE DIAGNOSES: Lumbar spinal stenosis at L4-L5, left with foraminal stenosis with left L5 radiculopathy. PROCEDURE: Left L4-L5 lumbar laminectomy, medial facetectomy, and foraminotomy at L4-L5 left with METRx retractor. SURGEON: Raz Mueller MD. DESCRIPTION AND TECHNIQUE: After induction of general endotracheal anesthesia, the patient was rolled prone on the Yariel frame. Lumbar spine was prepped and draped in usual sterile fashion. Fluoroscopic x-ray and spinal needle localized the L4-L5 interspace on the left. After infiltration 1:100,000 epinephrine and 1% lidocaine, a stab incision was created with a #11 blade. A series of dilators were used to advance a METRx retractor at L4-L5 interspace on the left. The level was confirmed with fluoroscopic x-ray. A microscope and Midas Camacho drill were used to perform a laminotomy, medial facetectomy and foraminotomy at L4-L5 on the left. Hypertrophied ligamentum flavum was removed with Cloward rongeurs. Following this, the left L4 and L5 nerve roots were decompressed well. Meticulous hemostasis was maintained throughout the wound. Wound was irrigated with copious amounts of Ancef irrigant solution. The retractors removed. Fascia was closed with 2-0 Vicryl suture. The subdermal layer was closed with 3-0 Vicryl suture. The skin was closed with jenny. A sterile dressing was applied to the wound. The patient was awakened in good condition and taken to recovery. All counts were reported as correct. Estimated blood loss was minimal. EDITED FOR DATE OF SURGERY,DANIE 10/08/19 TRANSINT:[id number] Voice Confirmation ID: [id number] DOCUMENT ID: [id number] RAZ MUELLER MD CC: [id number] DICTATION DATE: 10/07/19 0706 DISPATCH SPECIALIST: 10/07/19 1025 DIS IN 09/24/19 [facility] [address] [place] [address]
[2019-09-12] MEDS ORDERED: GLIMEPIRIDE2 MG PO (12:11)
[2019-09-12] MEDS ORDERED: CREON (PANCRELI1 CAP PO (12:12)
[2019-09-12] MEDS ORDERED: PROSCAR5 MG PO (12:13)
[2019-09-12] MEDS ORDERED: METOPROLOL TART25 MG PO (12:14)
[2019-09-12] MEDS ORDERED: FLOMAX0.4 MG PO (12:15)
--- NOTE | 2019-09-12 12:40 | NUR ---
PATIENT WITH S-LOC LEFT AC VIA EMS.
[2019-09-12 12:43] LABS: BASOPHILS 0.1 % (0-2); EOSINOPHILS 1.3 % (0-7); HEMATOCRIT 37.5 % (42.0-54.0); HEMOGLOBIN 12.8 g/dL (13.5-17.5); IMMATURE GRANULOCYTES 0.2 % (0-5); LYMPHOCYTES 14.2 % (15-50); MCH 30.8 pg (26.0-34.0); MCHC 34.1 g/dL (31.0-37.0); MCV 90.4 fL (80.0-100.0); MEAN PLATELET VOLUME 10.4 fL (7.4-10.4); MONOCYTES 8.9 % (2-11); NEUTROPHILS 75.3 % (40-80); RBC 4.15 10x6/uL (4.20-6.10); RDW 13.3 % (11.5-14.5); WBC 9.1 10x3/uL (4.8-10.8)
[2019-09-12 12:46] LABS: PLATELET COUNT 283 10x3/uL (130-400)
[2019-09-12 12:59] LABS: INR 1.07 (0.85-1.17); PROTIME 13.9 SECONDS (11.6-15.0)
[2019-09-12 13:00] LABS: APTT 39.5 SECONDS (22.8-39.4)
[2019-09-12 13:11] LABS: ALBUMIN 3.1 g/dL (3.4-5.0); ALKALINE PHOSPHATASE 97 U/L (30-120); ALT (SGPT) 16 U/L (10-68); CALCIUM 8.6 mg/dL (8.5-10.1); CARBON DIOXIDE 29.7 mmol/L (21.0-32.0); CHLORIDE - SERUM 105 mmol/L (98-107); CKMB 0.7 U/L (0.0-3.6); CREATINE KINASE 208 UL (21-232); CREATININE - SERUM 1.1 mg/dL (0.6-1.3); PROTEIN - SERUM 7.3 g/dL (6.4-8.2); SODIUM 144 mmol/L (136-145); TROPONIN-I 0.033 ng/mL (0.000-0.060); UREA NITROGEN 14 mg/dL (7-18); eGFR NON AFRICAN AMERICAN 69 mL/min (90-120)
[2019-09-12 13:19] LABS: CALC OSMOLALITY 285 mosm/kg (275-300); GLUCOSE 61 mg/dL (74-106); POTASSIUM - SERUM 2.9 mmol/L (3.5-5.1)
[2019-09-12 13:52] LABS: SPECIFIC GRAVITY 1.015 (1.005-1.020)
[2019-09-12 13:53] LABS: BACTERIA FEW /hpf (NEGATIVE); BILIRUBIN NEGATIVE (NEGATIVE); EPITHELIAL CELLS RARE /hpf (0-5); GLUCOSE NEGATIVE (NEGATIVE); KETONE NEGATIVE (NEGATIVE); NITRITE NEGATIVE (NEGATIVE); RED CELLS - URINE 25-50 /hpf (0-5); UROBILINOGEN 4 mg/dL (NORMAL); WHITE CELLS - URINE 0-5 /hpf (NEGATIVE)
[2019-09-12 13:54] LABS: CALCIUM OXALATE CRYSTALS 0-5 /hpf (NONE SEEN)
--- NOTE | 2019-09-12 16:23 | NUR ---
LEG BAG CHANGED TO REGULAR DRAIN BAG WITH STAT LOCK IN PLACE.
--- NOTE | 2019-09-12 16:45 | NUR ---
PT ARIVES TO ROOM VIA STRETCHER ESCORTED BY ER NURSE DEEPA. PT IS AAO X 4 AND TRANSFERS TO BED WITH MINIMAL ASSISTANCE. PT WITH MULTIPLE SCARS/SCABS OVER GENERALIZED BODY. PT ANSWERS ALL QUESTIONS APPROPRIATLEY. PRADHAN CATHETER NOTED AND DRAINING WITHOUT DIFFICULTY. STAT LOCK IN PLACE. CLUMPS OF "POWDER" NOTED TO GENITAL AREA. PT STATES THAT HE USES POWDER FOR COMFORT AND REFUSES ASSISTANCE CLEANING. VSS. SEE FLOWSHEET. ALL FALL PRECAUTIONS ARE IN PLACE EXCEPT YELLOW GOWN. PT STATES "I AM COLD AND WANT TO STAY IN THE GOWN THAT I HAVE ON". PT DENIES PRESENCE OF PAIN/N/V AT THIS TIME. PT STATES "IM JUST REALLY HUNGRY" PT STATES THAT HE IS UNSURE OF WHEN LAST MEAL WAS. STATES "I THINK YESTERDAY, BUT I HAVENT ATE TODAY". ADMISSION REQUIREMENTS COMPLETE. FINDINGS PASSED TO SHIFT NURSE ANNABELLA LOONEY RN. BED IS IN THE LOWEST POSITION. CALL LIGHT AND BEDSIDE TABLE ARE WITHIN REACH. SIDE RAILS X 2. PT DENIES FURTHER NEEDS.
[2019-09-12 17:05] VITALS: BP 175/72; BMI 23.0
[2019-09-12 20:00] VITALS: BP 136/91
--- NOTE | 2019-09-12 20:00 | NUR ---
PATIENT RESTING IN BED WITH EYES CLOSED. NO S/S OF ACUTE DISTRESS. NO C/O AT THIS TIME. PATIENT HAS IV IN LEFT UPPER ARM D5 1/2 NORMAL SALINE @ 75 ML/HR. IV IS PATENT WITHOUT REDNESS, SWELLING, OR TENDERNESS. PATIENT IS CONFUSED, DISORIENTATED TO SITUATION. PATIENT HAS A PRADHAN, AND GETS CONFUSED THINKING THAT HE NEEDS TO GET UP AND PEE. PATIENT WAS REORIENTATED THAT HE HAS A PRADHAN THAT WILL CATCH THE URINE. PATIENT HAS A BED ALARM IN PLACE. CALL LIGHT WITHIN REACH. WILL CONTINUE TO MONITOR.
[2019-09-13] VITALS: BP 92/46
--- NOTE | 2019-09-13 00:11 | NUR ---
I have reviewed this patient and I concur with the Shift Assessment completed by the Licensed Practical Nurse today this shift.
[2019-09-13 04:00] VITALS: BP 159/91
[2019-09-13 05:14] LABS: BASOPHILS 0.1 % (0-2); EOSINOPHILS 1.1 % (0-7); HEMATOCRIT 37.3 % (42.0-54.0); HEMOGLOBIN 12.7 g/dL (13.5-17.5); IMMATURE GRANULOCYTES 0.3 % (0-5); LYMPHOCYTES 13.2 % (15-50); MCH 30.4 pg (26.0-34.0); MCV 89.2 fL (80.0-100.0); MEAN PLATELET VOLUME 10.4 fL (7.4-10.4); MONOCYTES 8.7 % (2-11); NEUTROPHILS 76.6 % (40-80); PLATELET COUNT 286 10x3/uL (130-400); RBC 4.18 10x6/uL (4.20-6.10); RDW 13.2 % (11.5-14.5)
[2019-09-13 05:23] LABS: WBC 11.4 10x3/uL (4.8-10.8)
[2019-09-13 06:04] LABS: ALBUMIN 2.9 g/dL (3.4-5.0); ALKALINE PHOSPHATASE 93 U/L (30-120); ALT (SGPT) 13 U/L (10-68); BILIRUBIN - TOTAL 0.54 mg/dL (0.2-1.3); CALCIUM 8.6 mg/dL (8.5-10.1); CHLORIDE - SERUM 106 mmol/L (98-107); CREATININE - SERUM 0.9 mg/dL (0.6-1.3); LIPASE 62 U/L (73-393); MAGNESIUM - SERUM 1.9 mg/dL (1.8-2.4); PHOSPHOROUS 2.3 mg/dL (2.5-4.9); POTASSIUM - SERUM 3.3 mmol/L (3.5-5.1); PROTEIN - SERUM 6.9 g/dL (6.4-8.2); SODIUM 142 mmol/L (136-145); THYROID STIMULATING HORMONE 0.55 uIU/mL (0.36-3.74); UREA NITROGEN 11 mg/dL (7-18); eGFR NON AFRICAN AMERICAN 87 mL/min (90-120)
[2019-09-13 06:20] LABS: CALC OSMOLALITY 281 mosm/kg (275-300); GLUCOSE 97 mg/dL (74-106)
[2019-09-13 06:21] LABS: AMYLASE - SERUM 453 U/L (25-115)
--- NOTE | 2019-09-13 07:40 | NUR ---
ALERT AND ORIENTED TO SELF AND PLACE. HEART SOUNDS S1 AND S2 HEARD IN ALL LANDA. LUNGS CLEAR BILATERALLY. IV TO MIRELA PATENT WITHOUT REDNESS. PRADHAN PATENT DRAINING YELLOW URINE. DENIES NEEDS. FALL PRECAUTIONS IN PLACE. CALL BOOTHE AND PERSONAL ITEMS IN REACH. WILL CONTINUE TO MONITOR.
--- NOTE | 2019-09-13 07:45 | NUR ---
BP 200/100. AMYLASE 456. BUSINESS SOLUTIONS ANALYST YULI NOTIFIED. STATES WILL PUT IN ORDERS.
[2019-09-13 08:00] VITALS: BP 200/100
[2019-09-13 12:00] VITALS: BP 122/51
--- NOTE | 2019-09-13 12:43 | NUR ---
IV PULLED OUT TO MIRELA BY PATIENT. RESITED TO LFA WITH ONE ATTEMPT WITH 22 GAUGE.
[2019-09-13 14:50] VITALS: Ht 180.3 cm; Wt 73.2 kg
[2019-09-13 16:00] VITALS: BP 118/75
--- NOTE | 2019-09-13 16:12 | MORECARE ---
CASE MANAGEMENT DISCHARGE SUMMARY PATIENT: SHAYY FALCON UNIT: [id number] ADM DATE: 09/12/19 AGE: 78 : 42 SEX: M ROOM/BED: D.2225 AUTHOR: ABDIAS SEARS PHYSICIAN: REFERRING PHYSICIAN: DIRK MAYFIELD MD DATE OF SERVICE: 09/13/19 Discharge Plan Patient Name: SHAYY FALCON Facility: [facility]:[place] : 1940 Planned Disposition: Anticipated Discharge Date: Discharge Date: Expected LOS: Initial Reviewer: [email or web address] Initial Review Date: 09/13/2019 Generated: 09/13/19 5:12 pm Comments DCP- Discharge Planning Updated by [email or web address]: Jailene Vides on 09/13/19 3:[address] Patient Name: SHAYY FALCON Admission Status: ER Accout number: [id number] Admission Date: 09-12-2019 : 1940 Admission Diagnosis: Attending: DIRK MAYFIELD Current LOS: 1 Anticipated DC Date: Planned Disposition: Primary Insurance: [employer] MEDICARE ADV Discharge Planning Comments: CM ATTEMPTED TO MEET WITH PATIENT ABOUT DC PLANNING/NEEDS. HE DOES NOT WANT TO TALK TO ME RIGHT NOW. I WILL MEET WITH HIM AT A LATER TIME ABOUT DC PLANNING/NEEDS. Heading And Priming Operator: Jailene Vides Coverage Notice Reviewer: [id number] - Jailene Vides Notice Issued Date-Time: 09/13/2019 15:00 Notice Type: Medicare Outpatient Observation Notice Notice Delivered To: Patient Relationship to Patient: Drapery Inspector Name: Delivery Method: HAND - Hand Delivered Ayaka Days: Prior Verbal Notification: Recipient Understood Notice: Yes Recipient Signature: Yes Med Rec Note Co-signed by Attending: Coverage Notice Comment: Patient Name: SHAYY FALCON Page [phone] at 1612 All edits/amendments must be made on the electronic document DICTATION DATE: 09/13/19 161 CYTOLOGY TECHNOLOGIST: NOAH 09/13/19 161 RPT#: [id number] DC DATE: STATUS: ADM IN [facility] [id number] [place] [address] END OF REPORT
[2019-09-13 20:00] VITALS: BP 162/74
--- NOTE | 2019-09-13 20:00 | NUR ---
PATIENT RESTING IN BED WITH EYE SLIGHTLY OPEN. NO S/S OF ACUTE DISTRESS. NO C/O AT THIS TIME. PATIENT IS CONFUSED, A&O X1 SELF ONLY. PATIENT HAS LEFT FOREARM IV D5 1/2 NORMAL SALINE 20 KCL. IV IS PATENT WITHOUT REDNESS, SWELLING, OR TENDERNESS. PATIENT HAS A PRADHAN. PATIENT HAS A BROCK ALARM ON. PATIENT HAS SCDS ON. CALL LIGHT WITHIN REACH. WILL CONINUE TO MONITOR.
[2019-09-14] VITALS: BP 168/78
--- NOTE | 2019-09-14 00:15 | NUR ---
PATIENT LEFT FOREARM IV WOULD NOT FLUSH AND WAS TAKEN OUT. NEW IV WAS PLACED IN LEFT FOREARM (THE LEFT SIDE). IV IS PATENT WITHOUT REDNESS, SWELLING, OR TENDERNESS. CALL LIGHT WITHIN REACH. WILL CONTINUE TO MONITOR.
--- NOTE | 2019-09-14 01:01 | NUR ---
I have reviewed this patient and I concur with the Shift Assessment completed by the Licensed Practical Nurse today this shift.
[2019-09-14 04:00] VITALS: BP 167/72
[2019-09-14 06:52] LABS: HEMATOCRIT 35.8 % (42.0-54.0); HEMOGLOBIN 12.2 g/dL (13.5-17.5); LYMPHOCYTES 19.4 % (15-50); MCH 30.3 pg (26.0-34.0); MCHC 34.1 g/dL (31.0-37.0); MCV 89.1 fL (80.0-100.0); MEAN PLATELET VOLUME 10.6 fL (7.4-10.4); NEUTROPHILS 69.1 % (40-80); PLATELET COUNT 263 10x3/uL (130-400); RBC 4.02 10x6/uL (4.20-6.10); RDW 13.7 % (11.5-14.5); WBC 8.6 10x3/uL (4.8-10.8)
--- NOTE | 2019-09-14 06:55 | NUR ---
CONFUSED, A&O X2. RESTING IN BED WITH EYES OPEN. NO C/O PAIN. NO S/S OF ACUTE DISTRESS NOTED. BROCK ALARM ON. PRADHAN CATHETER PRESENT. IV TO LEFT FOREARM, D5 1/2 NS WITH 20 K+ INFUSING @ 75ML/HR. SITE PATENT WITHOUT REDNESS OR SWELLING. DENIES ANY NEEDS AT THIS TIME. CALL LIGHT IN REACH. WILL CONTINUE TO MONITOR.
[2019-09-14 07:10] LABS: ANION GAP 11.4 mmol/L (8-16); CALCIUM 8.2 mg/dL (8.5-10.1); CARBON DIOXIDE 28.4 mmol/L (21.0-32.0); CREATININE - SERUM 1.1 mg/dL (0.6-1.3); PHOSPHOROUS 2.5 mg/dL (2.5-4.9); POTASSIUM - SERUM 3.8 mmol/L (3.5-5.1)
[2019-09-14 08:47] VITALS: BP 159/85
[2019-09-14 11:00] VITALS: BP 180/94
[2019-09-14 15:00] VITALS: BP 147/72
--- NOTE | 2019-09-14 17:56 | NUR ---
ALERT, SITTING UP IN BED. NO C/O PAIN. NO S/S OF ACUTE DISTRESS NOTED. DENIES ANY NEEDS AT THIS TIME. CALL LIGHT IN REACH. BROCK ALARM ON. WILL CONTINUE TO MONITOR.
[2019-09-14 20:01] VITALS: BP 135/66
[2019-09-15] VITALS: BP 140/70
[2019-09-15 04:00] VITALS: BP 170/94
--- NOTE | 2019-09-15 04:00 | NUR ---
BP 170/93 - GAVE PT CLONIDINE 0.1MG PO. EMPTIED ONLY 200 CC'S CONCENTRATED URINE FROM PRADHAN. PT IS ON IV FLUIDS BUT NOT DRINKING MUCH. ENCOURAGED FLUIDS. CHECKED PRADHAN FOR LOOPS AND APPLIED PRADHAN STABILIZER. NO OTHER NEEDS. WILL REASSESS AND CONTINUE TO MONITOR.
[2019-09-15 05:59] LABS: HEMATOCRIT 35.6 % (42.0-54.0); HEMOGLOBIN 12.2 g/dL (13.5-17.5); LYMPHOCYTES 22.9 % (15-50); MCH 30.7 pg (26.0-34.0); MCHC 34.3 g/dL (31.0-37.0); MCV 89.4 fL (80.0-100.0); MEAN PLATELET VOLUME 10.3 fL (7.4-10.4); NEUTROPHILS 65.7 % (40-80); PLATELET COUNT 266 10x3/uL (130-400); RBC 3.98 10x6/uL (4.20-6.10); RDW 13.7 % (11.5-14.5); WBC 9.6 10x3/uL (4.8-10.8)
[2019-09-15 06:06] LABS: CALC OSMOLALITY 280 mosm/kg (275-300); CALCIUM 8.3 mg/dL (8.5-10.1); CARBON DIOXIDE 25.7 mmol/L (21.0-32.0); CHLORIDE - SERUM 107 mmol/L (98-107); GLUCOSE 115 mg/dL (74-106); MAGNESIUM - SERUM 1.9 mg/dL (1.8-2.4); PHOSPHOROUS 2.8 mg/dL (2.5-4.9); POTASSIUM - SERUM 4.1 mmol/L (3.5-5.1); SODIUM 141 mmol/L (136-145); UREA NITROGEN 11 mg/dL (7-18); eGFR NON AFRICAN AMERICAN 77 mL/min (90-120)
--- NOTE | 2019-09-15 07:55 | NUR ---
ALERT AND ORIENTED, RESTING IN BED. NO C/O PAIN. NO S/S OF ACUTE DISTRESS NOTED. UP WITH ASSIST. SCDS. PRADHAN CATHETER, URINE CONCENTRATED. IV TO LEFT FOREARM, D5 1/2 NS WITH 20 K+ INFUSING @ 75ML/HR. SITE PATENT WITHOUT REDNESS OR SWELLING. DENIES ANY NEEDS AT THIS TIME. CALL LIGHT IN REACH. WILL CONTINUE TO MONITOR. BROCK ALARM ON.
[2019-09-15 08:32] VITALS: BP 144/63
--- NOTE | 2019-09-15 15:24 | MORECARE ---
CASE MANAGEMENT DISCHARGE SUMMARY PATIENT: SHAYY FALCON UNIT: [id number] ADM DATE: 09/12/19 AGE: 78 : 42 SEX: M ROOM/BED: D.2225 AUTHOR: ABDIAS SEARS PHYSICIAN: REFERRING PHYSICIAN: DIRK MAYFIELD MD DATE OF SERVICE: 09/15/19 Discharge Plan Patient Name: SHAYY FALCON Facility: [facility]:[place] : 1940 Planned Disposition: Anticipated Discharge Date: Discharge Date: Expected LOS: Initial Reviewer: [id number] Initial Review Date: 09/13/2019 Generated: 09/15/19 4:23 pm Comments DCP- Discharge Planning Updated by [email or web address]: Jailene Vides on 09/13/19 3:[address] Patient Name: SHAYY FALCON Admission Status: ER Accout number: [id number] Admission Date: 09-12-2019 : 1940 Admission Diagnosis: Attending: DIRK MAYFIELD Current LOS: 1 Anticipated DC Date: Planned Disposition: Primary Insurance: [employer] MEDICARE ADV Discharge Planning Comments: CM ATTEMPTED TO MEET WITH PATIENT ABOUT DC PLANNING/NEEDS. HE DOES NOT WANT TO TALK TO ME RIGHT NOW. I WILL MEET WITH HIM AT A LATER TIME ABOUT DC PLANNING/NEEDS. Cycle Director: Jailene Vides External Providers External Provider: [facility] Next Contact Date: Service Request Date: Service Type: Resolution: Reviewer: Comments: Coverage Notice Reviewer: [id number] - Jailene Vides Notice Issued Date-Time: 09/13/2019 15:00 Notice Type: Medicare Outpatient Observation Notice Notice Delivered To: Patient Relationship to Patient: Audit Mgr Name: Delivery Method: HAND - Hand Delivered Ayaka Days: Prior Verbal Notification: Recipient Understood Notice: Yes Recipient Signature: Yes Med Rec Note Co-signed by Attending: Coverage Notice Comment: Last DP export: 09/13/19 3:12 pm Patient Name: SHAYY FALCON Page [phone] at 1524 All edits/amendments must be made on the electronic document DICTATION DATE: 09/15/191522 FUEL SYSTEM MAINTENANCE WORKER: NOAH 09/15/191522 RPT#: [id number] UT DATE: STATUS: ADM IN [facility] [address] [place] [address] END OF REPORT
[2019-09-15 17:37] VITALS: BP 130/68
--- NOTE | 2019-09-15 18:00 | NUR ---
I have reviewed this patient and I concur with the Shift Assessment completed by the Licensed Practical Nurse today this shift.
--- NOTE | 2019-09-15 18:10 | NUR ---
RESTING IN BED WITH EYES CLOSED. RESPIRATIONS EVEN AND UNLABORED. NO S/S OF ACUTE DISTRESS NOTED. CALL LIGHT IN REACH. BROCK ALARM ON. WILL CONTINUE TO MONITOR.
[2019-09-15 20:01] VITALS: BP 146/69
[2019-09-16] VITALS: BP 132/74
[2019-09-16 04:00] VITALS: BP 160/70
[2019-09-16 04:44] LABS: HEMATOCRIT 33.1 % (42.0-54.0); HEMOGLOBIN 11.3 g/dL (13.5-17.5); LYMPHOCYTES 26.7 % (15-50); MCH 30.5 pg (26.0-34.0); MCHC 34.1 g/dL (31.0-37.0); MCV 89.5 fL (80.0-100.0); MEAN PLATELET VOLUME 10.1 fL (7.4-10.4); PLATELET COUNT 243 10x3/uL (130-400); RDW 13.3 % (11.5-14.5); WBC 7.8 10x3/uL (4.8-10.8)
[2019-09-16 05:03] LABS: CALC OSMOLALITY 279 mosm/kg (275-300); CALCIUM 8.2 mg/dL (8.5-10.1); CARBON DIOXIDE 29.1 mmol/L (21.0-32.0); CHLORIDE - SERUM 106 mmol/L (98-107); GLUCOSE 119 mg/dL (74-106); MAGNESIUM - SERUM 1.9 mg/dL (1.8-2.4); PHOSPHOROUS 2.9 mg/dL (2.5-4.9); SODIUM 140 mmol/L (136-145); UREA NITROGEN 12 mg/dL (7-18); eGFR NON AFRICAN AMERICAN 77 mL/min (90-120)
--- NOTE | 2019-09-16 07:31 | NUR ---
ALERT AND ORIENTED. LUNGS CLEAR BILATERALLY. HEART SOUNDS S1 AND S2 HEARD IN ALL LANDA. BOWEL SOUNDS ACTIVE X 4. SKIN INTACT WITHOUT REDNESS. IV TO LFA PATENT WITHOUT REDNESS. DENIES PAIN. DENIES NEEDS. BED LOW. FALL PRECAUTIONS IN PLACE. CALL BOOTHE AND PERSONAL ITEMS IN REACH. WILL CONTINUE TO MONITOR.
[2019-09-16 08:07] VITALS: BP 136/80
--- NOTE | 2019-09-16 11:22 | NUR ---
PATIENT REFUSES INSULIN FOR BLOOD SUGAR 171.
--- NOTE | 2019-09-16 11:30 | NUR ---
ASSISTED BACK TO BED.DENIES FURTHER NEEDS. WILL CONTINUE TO MONITOR.
[2019-09-16 11:50] VITALS: BP 100/50
--- NOTE | 2019-09-16 12:35 | NUR ---
UP WITH PT. NO SKIN ISSUES NOTED.
--- NOTE | 2019-09-16 13:43 | NUR ---
Nutrition follow-up: Diet: Consistent CHO PO intake ~65% average of meals Labs reviewed Wt: 165# +BM RDN following.
[2019-09-16 16:06] VITALS: BP 148/74
--- NOTE | 2019-09-16 19:04 | NUR ---
MRI THORACIC AND LUMBAR WITHOUT CONTRAST COMPLETED. PATIENT ASKED TO QUIT SCAN BEFORE CONTRAST WAS GIVEN. ROBEL PENALOZA RN.
--- NOTE | 2019-09-16 19:10 | NUR ---
LYING IN BED. ALERT AND ORIENTED TO SELF, PLACE AND SITUATION. CONFUSED AT TIMES. BROCK ALARM ON. IRRITABLE. REPORTS PAIN 7 IN SCROTUM, GROIN AND BACK. RESP EVEN AND NONLABORED. NONPROD COUGH NOTED. RESTLESS. PRADHAN CATH PATENT AND DRAINING CLEAR YELLOW URINE. D5 1/2 NS WITH 20 MEQ KCL INFUSING IN LT FOREARM. SCDS ON BILAT. SR ELEVATED X2. CL IN REACH.
[2019-09-16 19:38] VITALS: BP 159/85
--- NOTE | 2019-09-16 19:45 | NUR ---
MEDICATED WITH MORPHINE FOR C/O SCROTUM, PERINEAL PAIN. CL IN REACH.
--- NOTE | 2019-09-16 21:30 | NUR ---
REQUESTED PUDDING FOR SNACK. REQUEST GRANTED. HAS POTATO CHIPS AT BEDSIDE. CL IN REACH.
--- NOTE | 2019-09-16 23:28 | NUR ---
LYING ON LT SIDE. REQUESTS LIGHTS BE TURNED OFF. BROCK ALARM ON. CL IN REACH. NO DISTRESS.
[2019-09-17 00:10] VITALS: BP 157/78
--- NOTE | 2019-09-17 02:01 | NUR ---
MEDICATED WITH MORPHINE FOR C/O PAIN IN SCROTAL AREA RATING 7. CL IN REACH. BROCK ON.
[2019-09-17 04:00] VITALS: BP 154/74
[2019-09-17 04:44] LABS: HEMATOCRIT 34.1 % (42.0-54.0); HEMOGLOBIN 11.8 g/dL (13.5-17.5); LYMPHOCYTES 23.1 % (15-50); MCH 30.6 pg (26.0-34.0); MCHC 34.6 g/dL (31.0-37.0); MCV 88.6 fL (80.0-100.0); MEAN PLATELET VOLUME 10.2 fL (7.4-10.4); NEUTROPHILS 66.9 % (40-80); PLATELET COUNT 265 10x3/uL (130-400); RBC 3.85 10x6/uL (4.20-6.10); RDW 13.6 % (11.5-14.5); WBC 8.3 10x3/uL (4.8-10.8)
[2019-09-17 05:05] LABS: CALC OSMOLALITY 271 mosm/kg (275-300); CARBON DIOXIDE 25.9 mmol/L (21.0-32.0); CHLORIDE - SERUM 103 mmol/L (98-107); GLUCOSE 93 mg/dL (74-106); PHOSPHOROUS 3.1 mg/dL (2.5-4.9); SODIUM 136 mmol/L (136-145); UREA NITROGEN 12 mg/dL (7-18); eGFR NON AFRICAN AMERICAN 77 mL/min (90-120)
--- NOTE | 2019-09-17 06:11 | NUR ---
ATE SNACK. DENIES NEEDS. NO DISTRESS. CONFUSED. BROCK ON. CL IN REACH.
--- NOTE | 2019-09-17 07:17 | NUR ---
ALERT AND ORIENTED. LUNGS CLEAR BILATERALLY. HEART SOUNDS S1 AND S2 HEARD IN ALL LANDA. BOWEL SOUNDS ACTIVE X 4. SKIN INTACT WITHOUT REDNESS. PRADHAN PATENT DRAINGING CLEAR YELLOW URINE. IV TO LFA PATENT WITHOUT REDNESS. DENIES PAIN. DENIES NEEDS. BED LOW. CALL BOOTHE AND PERSONAL ITEMS IN REACH. WILL CONTINUE TO MONITOR.
--- NOTE | 2019-09-17 08:40 | NUR ---
SPOKE WITH JOSE ARIAS RN FROM [facility]. [facility] HAS BEEN COMING TO PATIENT'S HOUSE THREE TIMES WEEKLY TO PROVIDE CARE. [facility] WORKING WITH [facility] AT THIS TIME. CASE MANAGEMENT NIKOLAI NOTIFIED AND PHONE NUMBER GIVEN.
[2019-09-17 09:03] VITALS: BP 118/62
--- NOTE | 2019-09-17 10:30 | NUR ---
PATIENT REFUSING TO STAY UP IN CHAIR. EDUCATION PROVIDED ON NEED TO NOT ALWAYS BE LAYING IN BED. STILL REFUSING TO STAY UP. ASSISTED BACK TO BED.
--- NOTE | 2019-09-17 11:25 | NUR ---
PATIENT DC HOME WITH ALL BELONGINGS.
[2019-09-17 12:48] VITALS: BP 127/59
--- NOTE | 2019-09-17 13:32 | NUR ---
ATTEMPTED TO NOTIFY DR RAMSEY THAT MRI RESULTS ARE BACK PER NURSING MESSAGE. WENT STRAIGHT TO VOICEMAIL TWICE AND MESSGE STATING MD MAILBOX IS FULL. UNABLE TO LEAVE MESSAGE.
--- NOTE | 2019-09-17 14:05 | NUR ---
PATIENT SLEEPING. WILL CONTINUE TO MONITOR.
--- NOTE | 2019-09-17 15:18 | NUR ---
PATIENT CAN GO TO ROOM 1111A PER REHAB. IV REMOVED FROM LFA WITH TIP INTACT.
--- NOTE | 2019-09-17 15:47 | NUR ---
SPOKE WITH NURSE AT DR RAMSEY'S OFFICE TO NOTIFY DR RAMSEY THAT PATIENT'S MRI IS BACK. STATES WILL NOTIFY.
[2019-09-17 17:39] VITALS: BP 153/73
--- NOTE | 2019-09-17 18:22 | NUR ---
CONSENTS OBTAINED FOR PROCEDURE. DENIES FURTHER QUESTIONS.
--- NOTE | 2019-09-17 19:01 | NUR ---
RESTING IN BED. DENIES NEEDS. BED LOW. CALL BOOTHE AND PERSONAL ITEMS IN REACH.
[2019-09-17 21:06] VITALS: BP 150/62
[2019-09-18 00:47] VITALS: BP 146/64
--- NOTE | 2019-09-18 01:05 | NUR ---
PT RESTING IN BED. EYES CLOSED. NO SIGNS OF DISTRESS. BREATHING EVEN AND UNLABORED. IV SITE LT FA DRESSING CLEAN DRY AND INTACT. NO SIGNS OF INFECITON OR INFULTRATION. LUNG SOUNDS CLEAR. BOWEL SOUNDS ACTIVE. PRADHAN IN PLACE CLEAN DRY AND INTACT. WILL CONTINUE PLAN OF CARE. CALL LIGHT IN REACH. BED LOWERED AND LOCKED. BROCK ALARM ON.
--- NOTE | 2019-09-18 01:54 | NUR ---
I have reviewed this patient and I concur with the Shift Assessment completed by the Licensed Practical Nurse today this shift.
[2019-09-18 04:51] LABS: BASOPHILS 0.2 % (0-2); HEMATOCRIT 36.2 % (42.0-54.0); HEMOGLOBIN 12.2 g/dL (13.5-17.5); IMMATURE GRANULOCYTES 0.2 % (0-5); LYMPHOCYTES 21.8 % (15-50); MCH 30.3 pg (26.0-34.0); MCHC 33.7 g/dL (31.0-37.0); MEAN PLATELET VOLUME 10.4 fL (7.4-10.4); MONOCYTES 10.3 % (2-11); NEUTROPHILS 63.5 % (40-80); PLATELET COUNT 272 10x3/uL (130-400); RBC 4.02 10x6/uL (4.20-6.10); RDW 13.3 % (11.5-14.5); WBC 8.4 10x3/uL (4.8-10.8)
[2019-09-18 05:13] LABS: ANION GAP 11.8 mmol/L (8-16); CALCIUM 8.3 mg/dL (8.5-10.1); CARBON DIOXIDE 26.5 mmol/L (21.0-32.0); CREATININE - SERUM 1.1 mg/dL (0.6-1.3); MAGNESIUM - SERUM 2.1 mg/dL (1.8-2.4); PHOSPHOROUS 3.2 mg/dL (2.5-4.9); POTASSIUM - SERUM 4.3 mmol/L (3.5-5.1)
[2019-09-18 06:10] VITALS: BP 140/76
[2019-09-18 08:00] VITALS: BP 110/62
--- NOTE | 2019-09-18 08:00 | NUR ---
ASSESSMENT PER FLOW SHEET. PATIENT IS WITHOUT DISTRESS.FALL PREVENTION IN PLACE WITH BROCK MAT. DOOR OPEN
[2019-09-18 12:00] VITALS: BP 108/62
[2019-09-18 16:00] VITALS: BP 121/70
[2019-09-18 21:08] VITALS: BP 140/77
[2019-09-19 01:06] VITALS: BP 144/81
--- NOTE | 2019-09-19 02:18 | NUR ---
PT RESTING IN BED. EYES CLOSED. NO SIGNS OF DISTRESS. BREATHING EVEN AND UNLABORED. IV SITE LT WRIST DRESSING CLEAN DRY AND INTACT. NO SIGNS OF INFECITON OR INFULTRATION. LUNG SOUNDS CLEAR. BOWEL SOUNDS ACTIVE. PRADHAN IN PLACE. WILL CONTINUE PLAN OF CARE. CALL LIGHT IN REACH. BED LOWERED AND LOCKED. BROCK ALARM ON. BED RAILS UPX3
--- NOTE | 2019-09-19 04:52 | NUR ---
I have reviewed this patient and I concur with the Shift Assessment completed by the Licensed Practical Nurse today this shift.
[2019-09-19 06:58] VITALS: BP 139/75
[2019-09-19 08:00] VITALS: BP 151/79
--- NOTE | 2019-09-19 08:00 | NUR ---
ASSESSMENT PER FLOW SHEET. PATIENT IS WITHOUT DISTRESS.NPO FOR SURGERY TODAY.
--- NOTE | 2019-09-19 08:27 | NUR ---
TO OR VIA BED.
--- NOTE | 2019-09-19 10:56 | NUR ---
ABLE TO MOVE ALL LOWER EXTREMETIES ON COMMAND ON ADMIT TO RR
--- NOTE | 2019-09-19 11:02 | NUR ---
PT FINGERNAILS ARE LONG AND CAKED WITH DIRT OR OTHER DARK COLORED SUBSTANCES UNDERNEATH THEM. PT HAS VERY POOR HYGINE. BLOOD TINGED URINE NOTED IN CATHETER BAG. PT HAD PRADHAN PLACED PRIOR TO PROCEDURE.
--- NOTE | 2019-09-19 11:07 | NUR ---
SCOPE PATCH BEHIND RT EAR ON ADMIT
--- NOTE | 2019-09-19 11:08 | NUR ---
500CC OF PINK TINGUED URINE IN PRADHAN ON ADMIT
[2019-09-19 11:30] VITALS: BP 108/60
[2019-09-19 12:18] LABS: BASOPHILS 0.1 % (0-2); EOSINOPHILS 1.5 % (0-7); HEMATOCRIT 36.2 % (42.0-54.0); HEMOGLOBIN 12.3 g/dL (13.5-17.5); IMMATURE GRANULOCYTES 0.1 % (0-5); LYMPHOCYTES 8.3 % (15-50); MCH 30.9 pg (26.0-34.0); MEAN PLATELET VOLUME 10.4 fL (7.4-10.4); MONOCYTES 3.3 % (2-11); NEUTROPHILS 86.7 % (40-80); PLATELET COUNT 268 10x3/uL (130-400); RBC 3.98 10x6/uL (4.20-6.10); RDW 13.4 % (11.5-14.5); WBC 9.1 10x3/uL (4.8-10.8)
[2019-09-19 12:32] LABS: ALBUMIN 3.1 g/dL (3.4-5.0); ANION GAP 13.2 mmol/L (8-16); BILIRUBIN - TOTAL 0.61 mg/dL (0.2-1.3); CALCIUM 8.7 mg/dL (8.5-10.1); CARBON DIOXIDE 25.3 mmol/L (21.0-32.0); CREATININE - SERUM 1.3 mg/dL (0.6-1.3); POTASSIUM - SERUM 4.5 mmol/L (3.5-5.1); PROTEIN - SERUM 6.9 g/dL (6.4-8.2)
[2019-09-19 16:18] VITALS: BP 111/62
[2019-09-19 20:00] VITALS: BP 137/69
[2019-09-20] VITALS: BP 110/61
[2019-09-20 04:00] VITALS: BP 106/65
--- NOTE | 2019-09-20 04:34 | NUR ---
PT RESTING IN BED. EYES CLOSED. NO SIGNS OF DISTRESS. BREATHING EVEN AND UNLABORED. IV SITE LT WRIST DRESSING CLEAN DRY AND INTACT. NO SIGNS OF INFECTION OR INFULTRATION. SKIN CLEAN DRY AND INTACT. BACK DRESSING CLEAN DRY AND INTACT. PRADHAN IN PLACE. WILL CONTINUE PLAN OF CARE. CALL LIGHT IN REACH. BED LOWERED AND LOCKED. BED RAILS UPX2. BROCK ALARM ON.
[2019-09-20 04:58] LABS: BASOPHILS 0.1 % (0-2); EOSINOPHILS 0.8 % (0-7); HEMATOCRIT 34.4 % (42.0-54.0); HEMOGLOBIN 11.3 g/dL (13.5-17.5); IMMATURE GRANULOCYTES 0.3 % (0-5); LYMPHOCYTES 13.5 % (15-50); MCHC 32.8 g/dL (31.0-37.0); MCV 91.2 fL (80.0-100.0); MEAN PLATELET VOLUME 10.9 fL (7.4-10.4); MONOCYTES 10.8 % (2-11); NEUTROPHILS 74.5 % (40-80); PLATELET COUNT 307 10x3/uL (130-400); RBC 3.77 10x6/uL (4.20-6.10); RDW 13.5 % (11.5-14.5)
[2019-09-20 05:09] LABS: WBC 11.7 10x3/uL (4.8-10.8)
[2019-09-20 05:30] LABS: ALBUMIN 2.9 g/dL (3.4-5.0); ANION GAP 9.9 mmol/L (8-16); BILIRUBIN - TOTAL 0.51 mg/dL (0.2-1.3); CALCIUM 8.4 mg/dL (8.5-10.1); CARBON DIOXIDE 26.5 mmol/L (21.0-32.0); CREATININE - SERUM 1.3 mg/dL (0.6-1.3); POTASSIUM - SERUM 4.4 mmol/L (3.5-5.1); PROTEIN - SERUM 6.5 g/dL (6.4-8.2)
--- NOTE | 2019-09-20 06:01 | NUR ---
I have reviewed this patient and I concur with the Shift Assessment completed by the Licensed Practical Nurse today this shift.
[2019-09-20 12:00] VITALS: BP 107/53
--- NOTE | 2019-09-20 12:33 | NUR ---
Rehab Prescreening Consult recieved and the chart has been reviewed. He is [employer] managed Medicare and will require a preauth. He is POD# 1 and has not had PT or OT since surgery. Once he has had the evals and is able to tolerate 3 hrs of therapy all information will be submitted to [facility] for their review. Rehab will follow. Harika Norman RN Clinical liaison, Rehab
--- NOTE | 2019-09-20 12:38 | NUR ---
PT SITTING UP IN BED READY FOR LUNCH, ADMINISTERED SCHEDULED MEDICATION AND PT STATED SHEETS WERE WET, AFTER LOOKING CLOSELY, NOTICED THAT PT HAD TAKEN IV IN LEFT FA OUT AND IV IN BED RUNNING, TURNED MACHINE OFF AND REMOVED WET LINENS. SET PT TRAY UP FOR LUNCH, NO OTHER NEEDS VOICED AT THIS TIME, CONTINUE WITH PLAN OF CARE
--- NOTE | 2019-09-20 14:56 | MORECARE ---
CASE MANAGEMENT DISCHARGE SUMMARY PATIENT: SHAYY FALCON UNIT: [id number] ADM DATE: 09/16/19 AGE: 78 : 42 SEX: M ROOM/BED: D.2225 AUTHOR: ABDIAS SEARS PHYSICIAN: REFERRING PHYSICIAN: DIRK MAYFIELD MD DATE OF SERVICE: 09/20/19 Discharge Plan Patient Name: SHAYY FALCON Facility: [facility]:[place] : 1940 Planned Disposition: Anticipated Discharge Date: Discharge Date: Expected LOS: Initial Reviewer: [email or web address] Initial Review Date: 09/13/2019 Generated: 09/20/19 3:56 pm Comments DCP- Discharge Planning Updated by [email or web address]: Jailene Vides on 09/20/19 1:[address] Patient Name: SHAYY FALCON Admission Status: ER Accout number: [id number] Admission Date: 09-16-2019 : 1940 Admission Diagnosis:WEAKNESS Attending: DIRK MAYFIELD Current LOS: 4 Anticipated DC Date: Planned Disposition: Primary Insurance: [employer] MEDICARE ADV Discharge Planning Comments: PATIENT IS CURRENT WITH [facility]. REHAB PRESCREEN ORDERD TODAY. CM TO FOLLOW AND ASSIST. Larriman: Jailene Vides DCP- Discharge Planning Updated by [id number]: Jailene Vides on 09/13/19 3:[address] Patient Name: SHAYY FALCON Admission Status: ER Accout number: [id number] Admission Date: 09-12-2019 : 1940 Admission Diagnosis: Attending: DIRK MAYFIELD Current LOS: 1 Anticipated DC Date: Planned Disposition: Primary Insurance: [employer] MEDICARE ADV Discharge Planning Comments: CM ATTEMPTED TO MEET WITH PATIENT ABOUT DC PLANNING/NEEDS. HE DOES NOT WANT TO TALK TO ME RIGHT NOW. I WILL MEET WITH HIM AT A LATER TIME ABOUT DC PLANNING/NEEDS. Larriman: Jailene Vides Coverage Notice Reviewer: [id number] Christelle Vides Notice Issued Date-Time: 09/13/2019 15:00 Notice Type: Medicare Outpatient Observation Notice Notice Delivered To: Patient Relationship to Patient: Auto Fleet Maintenance Manager Name: Delivery Method: HAND - Hand Delivered Ayaka Days: Prior Verbal Notification: Recipient Understood Notice: Yes Recipient Signature: Yes Med Rec Note Co-signed by Attending: Coverage Notice Comment: Last DP export: 09/15/19 2:24 p Patient Name: SHAYY FALCON Page [phone] at 1456 All edits/amendments must be made on the electronic document DICTATION DATE: 09/20/191455 MSWS: NOAH 09/20/191455 RPT#: [id number] DC DATE: STATUS: ADM IN [facility] [address] [place] [address] END OF REPORT
[2019-09-20 16:00] VITALS: BP 133/77
--- NOTE | 2019-09-20 18:34 | NUR ---
RESITED PT IV TO LEFT HAND, ATTTEMPTED 22 G IN LEFT FA AND IV BLEW, SECOND ATTEMPT IN LEFT HAND SUCCESSFUL, RESTARTED IV FLUIDS AT 75ML/HR. NO OTHER NEEDS VOICED, CONTIUE WITH PLAN OF CARE
--- NOTE | 2019-09-20 19:42 | NUR ---
I have reviewed this patient and I concur with the Shift Assessment completed by the Licensed Practical Nurse today this shift.
[2019-09-20 20:00] VITALS: BP 101/50
[2019-09-21] VITALS: BP 121/76
[2019-09-21 04:00] VITALS: BP 100/70
[2019-09-21 06:56] LABS: BASOPHILS 0.1 % (0-2); EOSINOPHILS 1.9 % (0-7); HEMOGLOBIN 11.9 g/dL (13.5-17.5); IMMATURE GRANULOCYTES 0.3 % (0-5); MCH 30.3 pg (26.0-34.0); MCHC 33.1 g/dL (31.0-37.0); MCV 91.6 fL (80.0-100.0); MONOCYTES 14.7 % (2-11); PLATELET COUNT 299 10x3/uL (130-400); RBC 3.93 10x6/uL (4.20-6.10); RDW 13.6 % (11.5-14.5); WBC 9.7 10x3/uL (4.8-10.8)
[2019-09-21 07:16] LABS: ALBUMIN 3.1 g/dL (3.4-5.0); ANION GAP 11.3 mmol/L (8-16); BILIRUBIN - TOTAL 0.92 mg/dL (0.2-1.3); CALCIUM 8.8 mg/dL (8.5-10.1); CREATININE - SERUM 1.1 mg/dL (0.6-1.3); POTASSIUM - SERUM 4.3 mmol/L (3.5-5.1); PROTEIN - SERUM 7.1 g/dL (6.4-8.2)
[2019-09-21 08:28] VITALS: BP 109/76
--- NOTE | 2019-09-21 08:58 | NUR ---
PT IS AGITATED TODAY, STATED " THEY WILL NOT LET ME LEAVE TO REHAB" EXPLAINED TO PT THAT WE ARE WAITING ON ORDERS AND A BED AND THESE THINGS TAKE TIME AND WE CAN NOT SIMPLY JUST TAKE HIM DOWN THERE, PT STATED THERE ARE PLENTY OF BEDS THERE BECAUSE NO ONE IS COMING TO THE HOSPITAL. EXPLAINED TO PT THAT 'Abdi WILL BE IN THIS MORNING TO ANSWER FURTHER QUESTIONS
--- NOTE | 2019-09-21 10:58 | NUR ---
PER SWEETIE WITH PHYSICAL THERAPY, PT IS MORE CONFUSED AND WEAK TODAY THAN HE WAS DAY BEFORE YESTERDAY, PT WAS UNABLE TO FOLLOW SIMPLE ORDERS WHEN WALKING THEN ASKED SWEETIE TO FIND HIS PREPAID CELL PHONE SO HE CAN CALL DOWNSTAIRS TO GET A ROOM IN REHAB. PT BACK IN ROOM LYING IN BED, NO S/SX OF DISTRESS, CONTINUE WITH PLAN OF CARE
[2019-09-21 12:24] VITALS: BP 110/79
--- NOTE | 2019-09-21 14:33 | NUR ---
PT IS LYING IN BED CALLS OUT FOR BILL TO COME HERE, WENT TO PT'S ROOM AND RREORIENTED PT BACK TO HOSPITAL. NO BILL WORKING HERE TODAY. PT STATES OK AND ROLLS TO SIDE ON BED, MINUTES LATER PT IS CALLING OUT FOR BILL AGAIN. PT IS CONFUSED, ADMINISTERED TYLENOL FOR PAIN DUE TO CONCERN THAT MORPHINE WILL ONLY MAKE CONFUSION WORSE. CONTINUE WITH PLAN OF CARE
[2019-09-21 16:07] VITALS: BP 100/68
--- NOTE | 2019-09-21 17:56 | NUR ---
I have reviewed this patient and I concur with the Shift Assessment completed by the Licensed Practical Nurse today this shift.
--- NOTE | 2019-09-21 19:00 | NUR ---
BEDSIDE REPORT RECEIVED AND CARE OF PT ASSUMED. PT LYING ON LEFT SIDE WITH EYES CLOSED AND UNLABORED BREATHING. IV TO RIGHT FA PATENT WITH D51/2NS W/ 20 KCL INFUSING AT 75 ML/HR. BED ALARM IN USE. WILL MONITOR FOR NEEDS.
[2019-09-21 20:00] VITALS: BP 97/59
--- NOTE | 2019-09-21 20:04 | NUR ---
HS MEDICATIONJS GIVEN. WILL CONTINUE TO MONITOR FOR NEEDS.
--- NOTE | 2019-09-21 20:35 | NUR ---
PT SITTING UP ON SIDE OF BED WITH BED ALARM SOUNDING...POSITIONED BACK IN BED AND PROVIDED A WARM BLANKET PER REQUEST FOR COMFORT.
[2019-09-22 04:00] VITALS: BP 111/66
[2019-09-22 05:32] LABS: BASOPHILS 0.1 % (0-2); EOSINOPHILS 3.1 % (0-7); HEMATOCRIT 33.5 % (42.0-54.0); HEMOGLOBIN 11.2 g/dL (13.5-17.5); IMMATURE GRANULOCYTES 0.1 % (0-5); LYMPHOCYTES 21.4 % (15-50); MCH 30.1 pg (26.0-34.0); MCHC 33.4 g/dL (31.0-37.0); MCV 90.1 fL (80.0-100.0); MEAN PLATELET VOLUME 10.9 fL (7.4-10.4); MONOCYTES 14.2 % (2-11); NEUTROPHILS 61.1 % (40-80); PLATELET COUNT 280 10x3/uL (130-400); RBC 3.72 10x6/uL (4.20-6.10); RDW 13.3 % (11.5-14.5); WBC 7.4 10x3/uL (4.8-10.8)
[2019-09-22 06:06] LABS: ALKALINE PHOSPHATASE 82 U/L (30-120); ALT (SGPT) 18 U/L (10-68); BILIRUBIN - TOTAL 1.09 mg/dL (0.2-1.3); CALC OSMOLALITY 273 mosm/kg (275-300); CALCIUM 8.6 mg/dL (8.5-10.1); CARBON DIOXIDE 23.8 mmol/L (21.0-32.0); CHLORIDE - SERUM 103 mmol/L (98-107); GLUCOSE 101 mg/dL (74-106); PROTEIN - SERUM 6.8 g/dL (6.4-8.2); SODIUM 136 mmol/L (136-145); UREA NITROGEN 17 mg/dL (7-18); eGFR NON AFRICAN AMERICAN 77 mL/min (90-120)
[2019-09-22 08:42] VITALS: BP 137/81
--- NOTE | 2019-09-22 09:05 | NUR ---
ASSISTED PT TO SITTING UP STRAIGHT IN BED FOR BREAKFAST, PT WAS ABLE TO TAKE ALL MEDICATIONS WITH NO SIGNS OF DISTRESS. CL IN REACH BED IN LOWEST POSITION, PT STATED HE WAS HAVING SOME PAIN, ADMNISTERED PRN TYLENOL. CONTINUE WITH PLAN OF CARE
--- NOTE | 2019-09-22 11:50 | NUR ---
PT LYING ON RIGHT SIDE, STATED HE DOES NOT FEEL GOOD TODAY, PT WAS COUGHING THIS MORNING AND SOUNDED IF HE IS SPITTING UP PHLEGM, GAVE PT I/S THIS MORNING AND EDUCATED PT ON USE, ENCOURAGED PT TO USE AT LEAST 5-10 TIMES AN HOUR. CONTINUE WITH PLAN OF CARE
[2019-09-22 12:35] VITALS: BP 125/61
[2019-09-22 16:08] VITALS: BP 153/67
--- NOTE | 2019-09-22 19:00 | NUR ---
BEDSIDE REPORT RECEIVED AND CARE OF PT ASSUMED. PT LYING IN SUPINE POSITION WITH EYES CLOSED. IV TO RIGHT FA PATENT WITH D51/2 NS W/ 20 KCL INFUSING AT 75 ML/HR. PRADHAN CATHETER DRAINING TO GRAVITY WITH YELLOW URINE IN COLLECTION BAG. WILL MONITOR FOR NEEDS.
--- NOTE | 2019-09-22 20:03 | NUR ---
HS MEDICATIONS GIVEN. GAVE TURKEY SANDWICH FOR HS SNACK. WILL CONTINUE TO MONITOR FOR NEEDS.
[2019-09-22 21:59] VITALS: BP 133/56
--- NOTE | 2019-09-22 22:05 | NUR ---
ASSISTED PT UP TO BSC TO TRY TO HAVE BM. CHANGED ALL LINENS AND GOWN. POSITIONED BACK IN BED FOR COMFORT WITH WARM BLANKET. WILL CONTINUE TO MONITOR FOR NEEDS.
[2019-09-23 06:11] LABS: BASOPHILS 0.3 % (0-2); EOSINOPHILS 3.3 % (0-7); HEMOGLOBIN 10.9 g/dL (13.5-17.5); IMMATURE GRANULOCYTES 0.1 % (0-5); LYMPHOCYTES 26.3 % (15-50); MCV 90.9 fL (80.0-100.0); MONOCYTES 12.6 % (2-11); NEUTROPHILS 57.4 % (40-80); PLATELET COUNT 289 10x3/uL (130-400); RBC 3.63 10x6/uL (4.20-6.10); RDW 13.3 % (11.5-14.5); WBC 7.2 10x3/uL (4.8-10.8)
[2019-09-23 06:25] LABS: ALBUMIN 2.9 g/dL (3.4-5.0); ALKALINE PHOSPHATASE 80 U/L (30-120); ALT (SGPT) 17 U/L (10-68); CALC OSMOLALITY 277 mosm/kg (275-300); CALCIUM 8.3 mg/dL (8.5-10.1); CARBON DIOXIDE 23.9 mmol/L (21.0-32.0); CHLORIDE - SERUM 106 mmol/L (98-107); CREATININE - SERUM 0.9 mg/dL (0.6-1.3); GLUCOSE 114 mg/dL (74-106); POTASSIUM - SERUM 4.3 mmol/L (3.5-5.1); SODIUM 138 mmol/L (136-145); UREA NITROGEN 16 mg/dL (7-18); eGFR NON AFRICAN AMERICAN 87 mL/min (90-120)
[2019-09-23 06:48] VITALS: BP 133/80
--- NOTE | 2019-09-23 08:00 | NUR ---
ASSESSMENT PER FLOW SHEET. HE IS WITHOUT DISTRESS.MONITOR FOR NEEDS.CALL LIGHT IN REACH
[2019-09-23 08:52] VITALS: BP 137/56
[2019-09-23 12:29] VITALS: BP 102/48
--- NOTE | 2019-09-23 13:25 | NUR ---
Nutrition follow-up: Diet: ADA consistent CHO PO intake ~50% of last 9 meals Pt has also been NPO for several meals for surgery (Lum Alonso). No BM -> Miralax ordered Wt: 161# RDN following.
--- NOTE | 2019-09-23 15:00 | NUR ---
PRADHAN CLAMPED AND BLADDER TAINING BEGUN. PATIENT STATES HIS PRADHAN IS TO STAY IN UNTIL HIS APPT IN 2 WEEKS
--- NOTE | 2019-09-23 15:30 | NUR ---
OT NOTE: PT COMPLETED SUPINE TO SIT WITH SBA.PT COMPLETED SIT TO STAND WITH MIN/MOD A. PT UNABLE TO HOLD STATIC STANDING BALANCE SECONDARY TO GROIN PAIN. NURSING AWARE. PT COMPLETED UB BATHING TASKS AT EOB WITH SETUP. PT COMPLETED HAIR GROOMING WITH SET UP AT EOB. [phone] THANK YOU,MICHELLE SMITH
--- NOTE | 2019-09-23 15:46 | NUR ---
PT STATES HE SEES DR BARRERA ON OCTOBER 10 TO TALK ABOUT DOING SOMETHING FOR HAVING A CATHETER CAUSE HE COULD NOT PEE. ORDER DISCONTINUED TO REMOVE CATHETER. DR MAYFIELD AWARE OF THIS.
--- NOTE | 2019-09-23 17:01 | NUR ---
OT NOTE: PT C/O GROIN PAIN WITH BED MOB AND STANDING. PT ABLE TO AMB IWTH RW AND MIN/MOD ASSIST FOR GAIT. PT VERY UNSTEADY AND IMPULSIVE.. POOR SAFETY AWARENESS. REQUIRES MOD ASSIST WITH LE DRESSING. PT WAS COLD AND WANTED TO ED SWEAT PANTS, HOWEVER, INCREASED PAIN WITH BENDING. MAX ASSIST WITH SOCKS AND CATHETER MGMT. ESTHER ROJAS, OTR/L [phone]
[2019-09-23 17:14] VITALS: BP 138/54
--- NOTE | 2019-09-23 18:07 | NUR ---
REMAINS WITHOUT NEEDS,WITHOUT CHANGE. CONT PLAN OF CARE
--- NOTE | 2019-09-23 19:00 | NUR ---
BEDSIDE REPORT RECEIVED AND CARE OF PT ASSUMED. PT LYING ON RIGHT SIDE WITH EYES CLOSED. IV TO RIGHT FA PATENT WITH D51/2 NS W/ 20 KCL INFUSING AT 75 ML/HR. PRADHAN CATHETER DRAINING TO GRAVITY WITH YELLOW URINE IN COLLECTION BAG. WILL MONITOR FOR NEEDS.
--- NOTE | 2019-09-23 19:22 | NUR ---
CALLED ENERGY SYSTEMS ENGINEER TO NOTIFY THAT PT REQUESTING PAIN MEDICATION FOR INCREASED GROIN PAIN. HE IS REVEIWING PT'S CHART.
--- NOTE | 2019-09-23 20:13 | NUR ---
HS MEDICATIONS GIVEN TO INCLUDE NORCO PER NEW ORDER, FOR PAIN.
--- NOTE | 2019-09-23 20:30 | NUR ---
HS SNACK FROM HOME.
[2019-09-23 21:26] VITALS: BP 154/85
[2019-09-24 01:30] VITALS: BP 154/87
[2019-09-24 06:27] VITALS: BP 164/87
[2019-09-24 07:38] LABS: ALBUMIN 2.8 g/dL (3.4-5.0); ALKALINE PHOSPHATASE 73 U/L (30-120); ALT (SGPT) 20 U/L (10-68); BILIRUBIN - TOTAL 0.78 mg/dL (0.2-1.3); CALC OSMOLALITY 273 mosm/kg (275-300); CALCIUM 8.1 mg/dL (8.5-10.1); CARBON DIOXIDE 25.1 mmol/L (21.0-32.0); CHLORIDE - SERUM 106 mmol/L (98-107); CREATININE - SERUM 0.9 mg/dL (0.6-1.3); GLUCOSE 103 mg/dL (74-106); POTASSIUM - SERUM 3.8 mmol/L (3.5-5.1); PROTEIN - SERUM 6.4 g/dL (6.4-8.2); SODIUM 137 mmol/L (136-145); UREA NITROGEN 12 mg/dL (7-18); eGFR NON AFRICAN AMERICAN 87 mL/min (90-120)
[2019-09-24 08:00] VITALS: BP 175/77
[2019-09-24 08:09] LABS: BASOPHILS 0.3 % (0-2); EOSINOPHILS 3.1 % (0-7); HEMOGLOBIN 10.9 g/dL (13.5-17.5); IMMATURE GRANULOCYTES 0.1 % (0-5); LYMPHOCYTES 23.1 % (15-50); MCH 29.9 pg (26.0-34.0); MCV 90.7 fL (80.0-100.0); MEAN PLATELET VOLUME 10.8 fL (7.4-10.4); MONOCYTES 13.6 % (2-11); NEUTROPHILS 59.8 % (40-80); PLATELET COUNT 280 10x3/uL (130-400); RBC 3.64 10x6/uL (4.20-6.10); RDW 13.1 % (11.5-14.5); WBC 6.7 10x3/uL (4.8-10.8)
[2019-09-24 12:00] VITALS: BP 96/43
--- NOTE | 2019-09-24 14:01 | MORECARE ---
CASE MANAGEMENT DISCHARGE SUMMARY PATIENT: SHAYY FALCON UNIT: [id number] ADM DATE: 09/16/19 AGE: 78 : 42 SEX: M ROOM/BED: D.2225 AUTHOR: RENUDOC PHYSICIAN: REFERRING PHYSICIAN: DIRK MAYFIELD MD DATE OF SERVICE: 09/24/19 Discharge Plan Patient Name: SHAYY FALCON Facility: [facility]:[place] : 1940 Planned Disposition: Anticipated Discharge Date: Discharge Date: Expected LOS: Initial Reviewer: [id number] Initial Review Date: 09/13/2019 Generated: 09/24/19 3:00 pm Comments DCP- Discharge Planning Updated by [id number]: Alexia Mcmullen on 09/24/19 12:[address] PATIENT WILL BE DISCHARGED TO INPATIENT REHAB TODAY, WE HAVE RECEIVED AUTH I OFFERED TO CALL HIS FAMILY TO LET THEM KNOW AND HE DID NOT WANT ME TO. IMM SERVED AND EXPLAINED ALSO A [facility] OBTAINED FOR INPATIENT REHAB. CM TO FOLLOW AND ASSIST NEEDED DCP- Discharge Planning Updated by [id number]: Jailene Vides on 09/20/19 1:[address] Patient Name: SHAYY FALCON Admission Status: ER Accout number: [id number] Admission Date: 09-16-2019 : 1940 Admission Diagnosis:WEAKNESS Attending: DIRK MAYFIELD Current LOS: 4 Anticipated DC Date: Planned Disposition: Primary Insurance: [employer] MEDICARE ADV Discharge Planning Comments: PATIENT IS CURRENT WITH [facility] . REHAB PRESCREEN ORDERD TODAY. CM TO FOLLOW AND ASSIST. Grocery Carrier: Jailene Vides DCP- Discharge Planning Updated by [id number]: Jailene Vides on 09/13/19 3:[address] Patient Name: SHAYY FALCON Admission Status: ER Accout number: [id number] Admission Date: 09-12-2019 : 1940 Admission Diagnosis: Attending: DIRK MAYFIELD Current LOS: 1 Anticipated DC Date: Planned Disposition: Primary Insurance: [employer] MEDICARE ADV Discharge Planning Comments: CM ATTEMPTED TO MEET WITH PATIENT ABOUT DC PLANNING/NEEDS. HE DOES NOT WANT TO TALK TO ME RIGHT NOW. I WILL MEET WITH HIM AT A LATER TIME ABOUT DC PLANNING/NEEDS. Grocery Carrier: Jailene Vides Coverage Notice Reviewer: [id number] - Jailene Mahogany Notice Issued Date-Time: 09/13/2019 15:00 Notice Type: Medicare Outpatient Observation Notice Notice Delivered To: Patient Relationship to Patient: Php Software Engineer Name: Delivery Method: HAND - Hand Delivered Ayaka Days: Prior Verbal Notification: Recipient Understood Notice: Yes Recipient Signature: Yes Med Rec Note Co-signed by Attending: Coverage Notice Comment: Reviewer: [id number] Christelle Mcmullen Notice Issued Date-Time: 09/24/2019 13:50 Notice Type: IM Discharge Notice Notice Delivered To: Patient Relationship to Patient: Php Software Engineer Name: Delivery Method: HAND - Hand Delivered Ayaka Days: Prior Verbal Notification: Recipient Understood Notice: Yes Recipient Signature: Yes Med Rec Note Co-signed by Attending: Coverage Notice Comment: Reviewer: [id number] Christelle Mcmullen Notice Issued Date-Time: 09/24/2019 13:50 Notice Type: Patient Choice Letter Notice Delivered To: Patient Relationship to Patient: Php Software Engineer Name: Delivery Method: HAND - Hand Delivered Ayaka Days: Prior Verbal Notification: Recipient Understood Notice: Yes Recipient Signature: Yes Med Rec Note Co-signed by Attending: Coverage Notice Comment: [facility]IENT [facility] Last DP export: 09/20/19 1:56 p Patient Name: SHAYY FALCON Page [id number] at 1401 All edits/amendments must be made on the electronic document DICTATION DATE: 09/24/19 1400 SUPERVISOR SULFURIC ACID PLANT: NOAH 09/24/19 1400 RPT#: [id number] DC DATE: STATUS: ADM IN [facility] [address] [place] [address] END OF REPORT
[2019-09-24] MEDS ORDERED: HYDROCODON-ACE1 EAC7 PO (14:03)
--- NOTE | 2019-09-24 15:01 | NUR ---
OT NOTE: BED MOB WITH SPV; SITTING BALANCE ON EOB WITH OCCASSIONAL ASSIST DUE TO REPORTED DIZZINESS. PT CONTINUES TO C/O SCROTAL PAIN. STATED THAT MAYBE WE SHOULD JUST "CUT OFF MY NUTS.. I DONT NEED THEM..IM NOT INTERESTED IN SEX ANYMORE".. PT VERY SERIOUS ABOUT THIS AND CONTINUES TO REQUEST TO HAVE THIS DONE. STATES THAT THE PAIN IS SO BAD THAT HE WOULD BE BETTER OFF WITHOUT THEM. PT ABLE TO AMB WITH SLIGHTLY IMPROVED BALANCE TODAY. HE STATES THAT HE COULD WALK MUCH BETTER IF NOT FOR SCROTAL PAIN. AMB APPROX 40 FT TODAY WITH WALKER. SAT UP IN CHAIR FOR ONLY APPROX 5 MIN BEFORE ATTEMPTING TO GET BACK IN BED. ASSISTED PT IWTH TRANSFER FROM CHAIR TO BED WITH MIN ASSIST. PT THEN RESUMED POSITION. ESTHER ROJAS, OTR/L [phone]
--- NOTE | 2019-09-24 15:14 | NUR ---
Rehab Note- Received fax with auth approval for inpatient acute rehab stay. Auth #[id number]. Notified ISAÍAS Hodgson of auth approval. Thank you for this referral! Tang Bowie Clinical Liaison, [facility] Rehab
--- NOTE | 2019-09-24 15:15 | NUR ---
CALLED REHAB FLOOR TO GIVE REPORT, NO ANSWER WILL TRY AGAIN LATER, PT SIGNDED DC FORMS, ALL QUESTIONS ANSWERED
--- NOTE | 2019-09-24 15:54 | NUR ---
I have reviewed this patient and I concur with the Shift Assessment completed by the Licensed Practical Nurse today this shift.
--- NOTE | 2019-09-24 16:34 | NUR ---
GAVE REPORT TO RAVINDER AND TOOK PT DOWN VIA WC, PACKED UP PT BELONGINGS AND PT HAD [employer] BAG OF HOME MEDS IN BELONGINGS WELL. IV REMOVED WITH CATHETER INTACT.
--- NOTE | 2019-09-25 14:12 | MORECARE ---
CASE MANAGEMENT DISCHARGE SUMMARY PATIENT: SHAYY FALCON UNIT: [id number] ADM DATE: 09/16/19 AGE: 78 : 42 SEX: M ROOM/BED: D.2225 AUTHOR: RENUDOC PHYSICIAN: REFERRING PHYSICIAN: DIRK MAYFIELD MD DATE OF SERVICE: 09/25/19 Discharge Plan Patient Name: SHAYY FALCON Facility: [facility]:[place] : 1940 Planned Disposition: Anticipated Discharge Date: Discharge Date: 09/24/2019 Expected LOS: Initial Reviewer: [id number] Initial Review Date: 09/13/2019 Generated: 09/25/19 3:11 pm Comments DCP- Discharge Planning Updated by [id number]: Alexia Mcmullen on 09/24/19 12:[address] PATIENT WILL BE DISCHARGED TO INPATIENT REHAB TODAY, WE HAVE RECEIVED AUTH I OFFERED TO CALL HIS FAMILY TO LET THEM KNOW AND HE DID NOT WANT ME TO. IMM SERVED AND EXPLAINED ALSO A [facility] OBTAINED FOR INPATIENT REHAB. CM TO FOLLOW AND ASSIST NEEDED DCP- Discharge Planning Updated by [id number]: Jailene Vides on 09/20/19 1:[address] Patient Name: SHAYY FALCON Admission Status: ER Accout number: [id number] Admission Date: 09-16-2019 : 1940 Admission Diagnosis:WEAKNESS Attending: DIRK MAYFIELD Current LOS: 4 Anticipated DC Date: Planned Disposition: Primary Insurance: [employer] MEDICARE ADV Discharge Planning Comments: PATIENT IS CURRENT WITH [facility] . REHAB PRESCREEN ORDERD TODAY. CM TO FOLLOW AND ASSIST. Inner Diameter Grinder Tool: Jailene Vides DCP- Discharge Planning Updated by [email or web address]: Jailene Vides on 09/13/19 3:[address] Patient Name: SHAYY FALCON Admission Status: ER Accout number: [id number] Admission Date: 09-12-2019 : 1940 Admission Diagnosis: Attending: DIRK MAYFIELD Current LOS: 1 Anticipated DC Date: Planned Disposition: Primary Insurance: [employer] MEDICARE ADV Discharge Planning Comments: CM ATTEMPTED TO MEET WITH PATIENT ABOUT DC PLANNING/NEEDS. HE DOES NOT WANT TO TALK TO ME RIGHT NOW. I WILL MEET WITH HIM AT A LATER TIME ABOUT DC PLANNING/NEEDS. Inner Diameter Grinder Tool: Jailene Vides Coverage Notice Reviewer: [id number] - Jailene Vides Notice Issued Date-Time: 09/13/2019 15:00 Notice Type: Medicare Outpatient Observation Notice Notice Delivered To: Patient Relationship to Patient: Zoo Keeper Name: Delivery Method: HAND - Hand Delivered Ayaka Days: Prior Verbal Notification: Recipient Understood Notice: Yes Recipient Signature: Yes Med Rec Note Co-signed by Attending: Coverage Notice Comment: Reviewer: [id number] Christelle Mcmullen Notice Issued Date-Time: 09/24/2019 13:50 Notice Type: IM Discharge Notice Notice Delivered To: Patient Relationship to Patient: Zoo Keeper Name: Delivery Method: HAND - Hand Delivered Ayaka Days: Prior Verbal Notification: Recipient Understood Notice: Yes Recipient Signature: Yes Med Rec Note Co-signed by Attending: Coverage Notice Comment: Reviewer: [id number] Mcmullen Notice Issued Date-Time: 09/24/2019 13:50 Notice Type: Patient Choice Letter Notice Delivered To: Patient Relationship to Patient: Zoo Keeper Name: Delivery Method: HAND - Hand Delivered Ayaka Days: Prior Verbal Notification: Recipient Understood Notice: Yes Recipient Signature: Yes Med Rec Note Co-signed by Attending: Coverage Notice Comment: [facility] Last DP export: 09/24/19 1:01 p Patient Name: SHAYY FALCON Page [id number] at 1412 All edits/amendments must be made on the electronic document DICTATION DATE: 09/25/19 1411 BRADLEY LINEBACKER CREWMEMBER: NOAH 09/25/19 1411 RPT#: [id number] DC DATE:09/24/19 STATUS: DIS IN [facility] [address] [place] [address] END OF REPORT
== END 2019-09-24 16:37 | DRG 516 ==
LOC: D.ER 12:05 → D.MS 15:29 → OBSVTIME 15:29 → D.ER 16:25 → D.MS 09-16 11:46
PROVIDERS: Family Medicine; Neurological Surgery; ADMIT Internal Medicine Nephrology; ATTEND Internal Medicine Nephrology
PROC: 0QB00ZZ Excision of Lumbar Vertebra, Open Approach (ICD-10-PCS; principal; 2019-09-19 10:30)
DX: M54.16 Radiculopathy, lumbar region (principal); N39.0 Urinary tract infection, site not specified; E44.0 Moderate protein-calorie malnutrition; D64.9 Anemia, unspecified; E87.6 Hypokalemia; I10 Essential (primary) hypertension; E11.9 Type 2 diabetes mellitus without complications; E78.5 Hyperlipidemia, unspecified; I25.10 Atherosclerotic heart disease of native coronary artery without angina pectoris; K21.9 Gastro-esophageal reflux disease without esophagitis; Z68.23 Body mass index [BMI] 23.0-23.9, adult; M48.061 Spinal stenosis, lumbar region without neurogenic claudication

== ENCOUNTER 2019-09-24 16:48 | Inpatient (IN) | payer MEDICARE, MEDICAID ==
[~2019-09-24] VITALS: Ht 180.3 cm; Wt 74.8 kg
[~2019-09-24 16:48] MED LIST changes: +FLOMAX0.4 MG PO; +GLIMEPIRIDE2 MG PO; +HYDROCODON-ACE1 EAC7 PO; +METOPROLOL TART25 MG PO; +PROSCAR5 MG PO
[2019-09-25 10:07] VITALS: Ht 180.3 cm; Wt 74.8 kg
[2019-10-11 08:00] VITALS: BP 142/76
[2019-10-11] MEDS ORDERED: HYDROCODON-ACE1 EAC7 PO (08:12)
== END 2019-10-11 13:15 | DRG 92 ==
LOC: D.REHAB 16:48
PROVIDERS: ADMIT Emergency Medicine; ATTEND Emergency Medicine
DX: G95.89 Other specified diseases of spinal cord (principal); N39.0 Urinary tract infection, site not specified; M48.061 Spinal stenosis, lumbar region without neurogenic claudication; D64.9 Anemia, unspecified; R53.1 Weakness; E87.5 Hyperkalemia; I10 Essential (primary) hypertension; E11.9 Type 2 diabetes mellitus without complications; E78.5 Hyperlipidemia, unspecified; K21.9 Gastro-esophageal reflux disease without esophagitis; R62.50 Unspecified lack of expected normal physiological development in childhood; C61 Malignant neoplasm of prostate; F03.90 Unspecified dementia, unspecified severity, without behavioral disturbance, psychotic disturbance, mood disturbance, and anxiety; M47.896 Other spondylosis, lumbar region; Z72.0 Tobacco use; Z98.890 Other specified postprocedural states

== ENCOUNTER → 2019-12-23 17:12 | Outpatient (CLI) | payer MEDICARE, MEDICAID ==
[2019-09-25 10:07] VITALS: BMI 23.0
[2019-12-23 18:26] LABS: BILIRUBIN NEGATIVE (NEGATIVE); GLUCOSE NEGATIVE (NEGATIVE); KETONE NEGATIVE (NEGATIVE); NITRITE NEGATIVE (NEGATIVE); UROBILINOGEN NORMAL (NORMAL)
[2019-12-23 18:27] LABS: BACTERIA MANY /hpf (NEGATIVE); RED CELLS - URINE 0-5 /hpf (0-5); WHITE CELLS - URINE 25-50 /hpf (NEGATIVE)
== END | disposition home or self-care (01) ==
LOC: D.LABREF 17:12
PROVIDERS: ATTEND Urology
DX: Z46.6 Encounter for fitting and adjustment of urinary device (principal); C61 Malignant neoplasm of prostate

== ENCOUNTER → 2019-12-28 14:36 | Outpatient (CLI) | payer MEDICARE, MEDICAID ==
[2019-09-25 10:07] VITALS: BMI 23.0
[2019-12-28 16:23] LABS: BILIRUBIN NEGATIVE (NEGATIVE); GLUCOSE NEGATIVE (NEGATIVE); KETONE NEGATIVE (NEGATIVE); NITRITE NEGATIVE (NEGATIVE); UROBILINOGEN NORMAL (NORMAL)
[2019-12-28 16:24] LABS: BACTERIA MANY /hpf (NEGATIVE); RED CELLS - URINE 0-5 /hpf (0-5); WHITE CELLS - URINE 0-5 /hpf (NEGATIVE)
[2019-12-28 16:25] LABS: CALCIUM OXALATE CRYSTALS 0-5 /hpf (NONE SEEN); TRIPLE PHOSPHATE CRYSTALS 0-5 /hpf (NONE SEEN)
== END | disposition home or self-care (01) ==
LOC: D.LABREF 14:36
PROVIDERS: ATTEND Urology
DX: C61 Malignant neoplasm of prostate (principal); Z46.6 Encounter for fitting and adjustment of urinary device

== ENCOUNTER → 2020-01-17 16:49 | Outpatient (CLI) | payer MEDICARE, MEDICAID ==
[2019-09-25 10:07] VITALS: BMI 23.0
[2020-01-17 17:25] LABS: BILIRUBIN NEGATIVE (NEGATIVE); KETONE NEGATIVE (NEGATIVE); NITRITE POSITIVE (NEGATIVE); UROBILINOGEN NORMAL mg/dL (< 2); WHITE CELLS - URINE >50 HPF (0-1)
[2020-01-17 17:26] LABS: BACTERIA MANY /HPF (NONE SEEN)
== END | disposition home or self-care (01) ==
LOC: D.LABREF 16:49
PROVIDERS: ATTEND Urology
DX: Z87.440 Personal history of urinary (tract) infections (principal)

== ENCOUNTER → 2020-06-29 12:23 | Outpatient (CLI) | payer MEDICARE, MEDICAID ==
[2019-09-25 10:07] VITALS: BMI 23.0
[2020-06-29 13:19] LABS: BASOPHILS 0.2 % (0-2); EOSINOPHILS 4.1 % (0-7); HEMATOCRIT 33.7 % (42.0-54.0); HEMOGLOBIN 11.1 g/dL (13.5-17.5); IMMATURE GRANULOCYTES 0.2 % (0-5); LYMPHOCYTE ABS# 1.37 10x3/uL (1.32-3.57); LYMPHOCYTES 24.2 % (15-50); MCH 32.1 pg (26.0-34.0); MCHC 32.9 g/dL (31.0-37.0); MCV 97.4 fL (80.0-100.0); MEAN PLATELET VOLUME 11.2 fL (7.4-10.4); MONOCYTES 13.1 % (2-11); NEUTROPHILS 58.2 % (40-80); PLATELET COUNT 178 10x3/uL (130-400); RBC 3.46 10x6/uL (4.20-6.10); RDW 13.2 % (11.5-14.5); WBC 5.7 10x3/uL (4.8-10.8)
[2020-06-29 13:23] LABS: ALBUMIN 2.8 g/dL (3.4-5.0); ALKALINE PHOSPHATASE 68 U/L (30-120); ALT (SGPT) 21 U/L (10-68); BILIRUBIN - TOTAL 0.23 mg/dL (0.2-1.3); CALC OSMOLALITY 288 mosm/kg (275-300); CALCIUM 8.1 mg/dL (8.5-10.1); CARBON DIOXIDE 24.8 mmol/L (21.0-32.0); CHLORIDE - SERUM 109 mmol/L (98-107); CHOL - HDL RATIO 4.2 ratio (2.3-4.9); CHOLESTEROL, TOTAL 131 mg/dL (0-200); GLUCOSE 139 mg/dL (74-106); HDL CHOLESTEROL 31 mg/dL (32-96); LDL CHOLESTEROL 73 mg/dL (0-100); LDL-HDL RATIO 2.4 ratio (1.5-3.5); POTASSIUM - SERUM 3.8 mmol/L (3.5-5.1); PROTEIN - SERUM 5.7 g/dL (6.4-8.2); SODIUM 142 mmol/L (136-145); TRIGLYCERIDE 136 mg/dL (30-200); UREA NITROGEN 25 mg/dL (7-18); eGFR NON AFRICAN AMERICAN 77 mL/min (90-120)
== END | disposition home or self-care (01) ==
LOC: D.LABREF 12:23
PROVIDERS: ATTEND Family Medicine
DX: E78.5 Hyperlipidemia, unspecified (principal); I49.9 Cardiac arrhythmia, unspecified; R54 Age-related physical debility; N18.9 Chronic kidney disease, unspecified

== ENCOUNTER → 2020-07-02 18:25 | Outpatient (CLI) | payer MEDICARE, MEDICAID ==
[2019-09-25 10:07] VITALS: BMI 23.0
[2020-07-02 19:02] LABS: BILIRUBIN NEGATIVE (NEGATIVE); KETONE NEGATIVE (NEGATIVE); NITRITE NEGATIVE (NEGATIVE); UROBILINOGEN NORMAL mg/dL (< 2)
[2020-07-02 19:10] LABS: BACTERIA MANY HPF (NONE SEEN); SQUAMOUS EPITHELIAL NONE SEEN HPF (0-4)
== END | disposition home or self-care (01) ==
LOC: D.LABREF 18:25
PROVIDERS: ATTEND Family Medicine
DX: R54 Age-related physical debility (principal); I49.9 Cardiac arrhythmia, unspecified; E78.5 Hyperlipidemia, unspecified; N18.9 Chronic kidney disease, unspecified; F03.90 Unspecified dementia, unspecified severity, without behavioral disturbance, psychotic disturbance, mood disturbance, and anxiety; I25.10 Atherosclerotic heart disease of native coronary artery without angina pectoris; I10 Essential (primary) hypertension; C61 Malignant neoplasm of prostate; E11.9 Type 2 diabetes mellitus without complications

== ENCOUNTER → 2020-07-09 09:33 | Outpatient (CLI) | payer MEDICARE, MEDICAID ==
[2019-09-25 10:07] VITALS: BMI 23.0
[2020-07-09 11:13] LABS: BILIRUBIN NEGATIVE (NEGATIVE); KETONE NEGATIVE (NEGATIVE); NITRITE NEGATIVE (NEGATIVE); UROBILINOGEN NORMAL mg/dL (< 2)
== END | disposition home or self-care (01) ==
LOC: D.LABREF 09:33
PROVIDERS: ATTEND Family Medicine
DX: Z51.81 Encounter for therapeutic drug level monitoring (principal)

== ENCOUNTER → 2020-08-22 20:44 | Outpatient (CLI) | payer MEDICARE ==
[2019-09-25 10:07] VITALS: BMI 23.0
[2020-08-22 21:01] LABS: BILIRUBIN NEGATIVE (NEGATIVE); KETONE NEGATIVE (NEGATIVE); NITRITE NEGATIVE (NEGATIVE); UROBILINOGEN NORMAL mg/dL (< 2)
[2020-08-22 21:03] LABS: BACTERIA MANY HPF (NONE SEEN); SQUAMOUS EPITHELIAL 0-5 HPF (0-4)
== END | disposition home or self-care (01) ==
LOC: D.LABREF 20:44
PROVIDERS: ATTEND Family Medicine
DX: N13.9 Obstructive and reflux uropathy, unspecified (principal)